=== PATIENT | male | born 1950 | race Caucasian/White ===

== ENCOUNTER 2017-12-21 10:32 | Outpatient (CLI) | payer MEDICARE | END 2017-12-21 10:33 | disposition home or self-care (01) | LOC: BICCT 10:32 | PROVIDERS: ATTEND Internal Medicine Cardiovascular Disease | DX: I71.2 Thoracic aortic aneurysm, without rupture (principal); I35.1 Nonrheumatic aortic (valve) insufficiency | CPT/HCPCS: 71275 ==

== ENCOUNTER 2018-09-30 11:25 | Outpatient (CLI) | payer MEDICARE ==
--- NOTE | 2018-09-30 11:57 | RAD ---
CHEST 2 VIEWS: HISTORY: Nonrheumatic aortic valve insufficiency. Heart surgery on 06/06/2018 with concern for followup of hea ling of sternal bone. FINDINGS: Heart size is normal. Postop midline sternotomy and aortic valve replacement. No confluent pneumoni a, overt edema, or pleural effusion. IMPRESSION: 1. Status post midline sternotomy and aortic valve replacement. No significant acute intrathoracic disease. 2. Atherosclerosis of the aorta with ectasia. 3. If there is clinical concern for the sternum, particularly in regards to healing, a followup CT s can would probably be of more benefit in evaluating for that possibility. POS: [facility]
== END 2018-09-30 11:26 | disposition home or self-care (01) ==
LOC: BICRAD 11:25
PROVIDERS: ATTEND Internal Medicine Cardiovascular Disease
DX: I35.1 Nonrheumatic aortic (valve) insufficiency (principal); I70.0 Atherosclerosis of aorta; I77.810 Thoracic aortic ectasia; Z98.890 Other specified postprocedural states; Z95.2 Presence of prosthetic heart valve
CPT/HCPCS: 71046

== ENCOUNTER 2020-05-04 00:53 | Inpatient (IN) | payer MEDICARE ==
[2020-05-04 01:48] LABS: Hemoglobin 7.6 g/dL (14.0-18.0); Mean Corpuscular Hemoglobin 29.4 pg (27.0-31.0); Mean Platelet Volume 9.5 fL (7.4-10.4); Platelet Count 115 thou/uL (130-400); RBC Distribution Width 14.2 % (11.5-14.5); Red Blood Cell (RBC) Count 2.59 mill/uL (4.70-6.10)
[2020-05-04 01:54] LABS: INR-International Normal Ratio 1.4; Prothrombin Time 17.6 sec (12.0-14.7)
[2020-05-04 01:55] LABS: PTT 42.5 sec (22.9-36.1)
[2020-05-04 02:26] LABS: CKMB 6.5 ng/mL (0-6.6)
--- NOTE | 2020-05-04 03:14 | PDOC.HHP ---
Hospitalist HPI - History of Present Illness general weakness History of Present Illness: This is a 69-year-old male patient with a history of atrial fibrillation, valvulopathy and aortic valve valve repair, repair of aortic dissection, nephrolithiasis, CAD status post CABG, who presents with general weakness for the past couple of months. He was transferred from [facility]. Patient states that about a month to a month and a half ago he had some goat weed growing in his backyard which she cut down after which he felt unwell and has been progressively worsening. He has had intermittent fevers, cough and severely decreased appetite. He is also has difficulty walking and intermittent confusion. He has chronic low back pain which he notes has become significantly worse. His prompted him to go to see the doctor. He presents to the ED at [facility] today for further evaluation. Patient was very hard of hearingwas difficulty elicited all questions. At presentation at [facility], his blood pressure was 78/52, pulse 130, respiratory rate 24, oxygen 99% on room air. Temperature of 97.9. His labs showed a leukocytosis of 25, hemoglobin 9.1, bands 1, platelets 108 sodium 131 4.39 from a baseline of 0.922 months ago. Lactate was 3.1 with improvement to 1.6 after hydration BNP was 442.5, troponin was 0.744. Urinalysis showed greater than 50 RBCs, 2+ bacteria 4-6 WBCs generally not indicative of a urinary tract infection. Also squamous epithelial cells was 7- 10. Chest x-ray showed linear atelectasis versus scarring in the left lung base however no clear indication of acute event. 3 L normal saline with no improvement in his blood pressure thus was given a central line and started on Levophed. Also started on azithromycin and ceftriaxone for antibiotic coverage. He was transferred here for higher level care. On arrival here his BP was 105/68, pulse 92, respiratory rate 20 and saturating 99 on room air. Given history of altered mentation a CT scan of his head was done which showed subacute infarct in the right cerebral hemisphere. Levophed was continued and IV fluid therapy continued on 130 mils per hour. Hospitalist team was consulted for admission Hospitalist ROS - Review of Systems Constitutional: reports: fever, weakness, malaise. denies: chills, sweats Respiratory: reports: cough. denies: shortness of breath, hemoptysis, SOB with excertion Cardiovascular: denies: chest pain, palpitations, orthopnea Gastrointestinal: denies: nausea, vomiting, abdominal pain Musculoskeletal: reports: back pain. denies: neck pain, shoulder pain, arm pain Neurological: reports: confusion. denies: weakness, numbness, incoordination, seizures Hospitalist History - Past Medical History Other Medical History: Atrial fibrillation, nephrolithiasis, valvulopathy, aortic dissection, CAD status post CABG - Past Surgical History Other Surgical History: CABG, kidney stone removal, valve replacement, - Family History Family History: reports: no pertinent history - Social History Smoking Status: Former smoker Alcohol: reports: None Living Situation: With Family - Exam General Appearance: awake alert, ill appearing Eye: PERRL, anicteric sclera ENT: normocephalic atraumatic Heart: RRR, no gallops, murmur present (Ejection systolic) Respiratory: CTAB, no wheezes, no rales, no ronchi Gastrointestinal: soft, non-tender, non-distended, normal bowel sounds Neurological: cranial nerve grossly intact (Patient however hard of hearing), no focal deficits Musculoskeletal: normal tone Psychiatric: A&O x 3, flat affect Hospitalist Results - Labs Result Diagrams: 05/05/20 04:17 05/05/20 04:17 Lab results: WBC 25.0 thou/uL (4.8-10.8) H 05/04/20 01:23 Hgb 7.6 g/dL (14.0-18.0) L 05/04/20 01:23 Hct 23.1 % (42.0-52.0) L 05/04/20 01:23 MCV 89.0 fL (78.0-98.0) 05/04/20 01:23 Plt Count 115 thou/uL (130-400) L 05/04/20 01:23 CK-MB (CK-2) 6.5 ng/mL (0-6.6) 05/04/20 01:23 Troponin I 1.178 ng/mL (< 0.028) H* 05/04/20 01:23 Hospitalist H&P A/P - Plan Plan: This is a 69-year-old male patient with a complicated past medical history including coronary artery disease status post CABG, aortic valve replacement, atrial fibrillation and chronic back pain who presents with septic shock of unclear source. Septic shock Source unknown. Patient hypotensive refractory to fluids, leukocytosis and tachypnea and fever. Last received 30 mils per KG IV fluids now on Levophed Received azithromycin and ceftriaxone I will give daptomycin for MRSA coverage given her renal functionotherwise would have given vancomycin Also start Zosyn Follow-up cultures Echo in a.m. to rule out vegetations on valves May have to consider spinal CT if no source of found Lactate was within normal range. Consider ID consult for review of antibiotic NSTEMI Troponin significantly elevated and rising Could be due to demand however Has history of coronary disease status post CABG Given cardiac history we will start on Lovenox Cardiac consult a.m. for review JODY Creatinine 4.39 from a baseline of 0.92 Received fluids and currently on pressors This is likely prerenal Repeat BMP in the morning Renal consult if no improvement. Anemia Hemoglobin is from 9.2 to 7.6. This may be dilutionalreceived about 3 L We will hold blood transfusion for now Hemoccult was negative Monitor H&H Transfuse hemoglobin less than 7 Follow-up a.m. CBC Consider GI consult if necessary Subacute stroke Patient has A. fib-not on anticoagulation Aspirin given at outside hospital Echocardiogram ordered Consider starting anticoagulation long-term PT evaluation Neuro consult in a.m. Valvular heart disease Ongoing edema Echo to rule out vegetation Consider cardiology consult. Paroxysmal atrial fibrillation Not on anticoagulation Consider statin in a.m. Consider cardiology input. Chronic back pain Pain relief as needed.
[2020-05-04] MEDS ORDERED: Norepinephrine 8 MG in Dextrose 5% in Water 242 ML IVPB PRN (03:45)
[2020-05-04] MEDS ORDERED: Ondansetron PF 4 MG/2 ML Vial IVP PRN (03:45)
[2020-05-04] MEDS ORDERED: Acetaminophen 325 MG TAB PO PRN (03:45)
[2020-05-04] MEDS ORDERED: Sodium Chloride 0.9% 1,000 ML IV SCH (03:45)
[2020-05-04] MEDS ORDERED: Ondansetron ODT 4 MG TAB SL PRN (03:45)
[2020-05-04] MEDS ORDERED: DAPTOmycin 500 MG in Sodium Chloride 0.9% 100 ML IVPB SCH ×2 (04:30→17:00)
[2020-05-04] MEDS ORDERED: Acetaminophen 650 MG Suppository PR PRN (04:38)
[2020-05-04] MEDS ORDERED: Enoxaparin Sodium 100 MG/ML SYRINGE SC SCH (05:00)
[2020-05-04] MEDS: Morphine 2 MG/ML VIAL SLOW IVP PRN ×2 (05:27→20:49)
[2020-05-04] MEDS: Piperacillin/Tazobactam 2.25 GM in Sodium Chloride 0.9% 100 ML IVPB SCH ×3 (05:29→22:23)
[2020-05-04] MEDS ORDERED: Piperacillin/Tazobactam 4.5 GM in Sodium Chloride 0.9% 100 ML IVPB SCH (06:00)
--- NOTE | 2020-05-04 08:24 | CT ---
PRELIMINARY REPORT/[facility]/EMERGENCY AFTER HOURS PROCEDURE EXAM: CT Head Without Intravenous Contrast. CLINICAL HISTORY: Increased weakness for the past couple weeks, AMS today. TECHNIQUE: Axial computed tomography images of the head/brain without intravenous contrast. COMPARISON: None provided. FINDINGS: BRAIN: No acute intraparenchymal hemorrhage. No mass lesion. There are foci of hypoattenuation identified i n the right posterior temporal, parietal and medial occipital lobes, subacute infarction is suspected. There is a small area of hypoattenuation in the medial right cerebellar hemisphere, infar ction in this region is suspected.. VENTRICLES: No hydrocephalus. ORBITS: The orbits are unremarkable. SINUSES AND MASTOIDS: The paranasal sinuses and mastoid air cells are clear. SOFT TISSUES: No significant facial or scalp soft tissue swelling evident. No radiopaque foreign body is seen. BONES: No acute skull fracture. IMPRESSION: Subacute infarctions are suspected in the right cerebral hemisphere. There is also an area of hypoat tenuation consistent with subacute infarction in the medial right cerebellum. There is no evidence of an acute intracranial hemorrhage or hematoma.. ELECTRONICALLY SIGNED BY: Dunia Lu DO May 04, 2020 3:20:08 AM [employer] This report is intended for review by the ordering physician only, in accordance of law. If you recei ve this report in error, please call [facility] at [phone]. FINAL REPORT Exam: Head CT without contrast HISTORY: Altered mental status. Increased weakness, for the past couple weeks. COMPARISON: 09/20/2014 FINDINGS: Hemorrhage: No intraparenchymal hemorrhage or extra-axial hematoma. Brain parenchyma: Cortical garrison-white matter differentiation is preserved. No mass effect or midline shift. Basilar cisterns are patent.Encephalomalacia and gliosis involving the right temporal lobe and medial left occipital lobe. Remainder of the cerebrum demonstrates preservation of cortical garrison- white matter differentiation. Ventricular system: Ventricles and sulci are patent and symmetric. Calvarium: Intact. Sinuses and mastoid air cells: Left maxillary sinus disease. IMPRESSION: 1. This report is in agreement with initial report by [facility]. 2. Remote insult involving the right cerebrum at the level of the temporal lobe and medial left occip ital lobe. Transcribed Date/Time: 05/04/2020 10:51 AM
[2020-05-04] MEDS ORDERED: Doxycycline 100 MG in Syringe 0 ML IVPB SCH (09:00)
--- NOTE | 2020-05-04 09:14 | CON ---
DATE OF CONSULTATION: 05/04/2020 CONSULTING PHYSICIAN: Hospitalist Service. IMPRESSION: 1. 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 2. History of atrial fibrillation. 3. Ongoing numerous medical problems. PLAN: Continue aspirin for now and consider long-term anticoagulation once things have stabilized. HISTORY OF PRESENT ILLNESS: Mr. Trujillo is an elderly gentleman, who has a past history of stroke. He reports that it happened several years ago, but could not give me specifics. He has had a history of atrial fibrillation with valvuloplasty. He also has a history of coronary artery disease. He presented to [facility] with complaints of weakness. He was noted to be hypotensive with an elevated white count and anemia. He was in renal failure. He was transferred here for care. He was given fluids and pressors. He is doing somewhat better. 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 He has been started on aspirin. PAST MEDICAL HISTORY: As listed above. ALLERGIES: NONE. SOCIAL HISTORY: No tobacco or alcohol use currently. FAMILY HISTORY: Noncontributory. MEDICATIONS: List was reviewed. REVIEW OF SYSTEMS: Ten-system review of systems is otherwise negative. PHYSICAL EXAMINATION: VITAL SIGNS: Blood pressure 90/68, pulse 85 and is in sinus rhythm, saturations 100%, and respirations 12. HEENT: Pupils equal and reactive. Conjunctivae clear. Oropharynx clear. Cranium, normocephalic and atraumatic. NECK: Supple. No lymphadenopathy. ABDOMEN: Soft and nontender. SKIN: Clear. EXTREMITIES: No cyanosis or edema. NEUROLOGIC: He was alert and cooperative. His speech was fluent and clear. I could not elicit a visual field deficit. He had no focal weakness or dysmetria. Sensation was intact. Plantar responses were upgoing on the left and down on the right. Gait was not tested. DIAGNOSTIC STUDIES: The findings on CT are chronic. Given his risk factors, I agree with the aspirin for now and anticoagulation in his future. Job ID: [id number]
[2020-05-04] MEDS ORDERED: Aspirin 81 mg Enteric Coated Tablet PO SCH (09:30)
[2020-05-04 10:02] LABS: Hemoglobin A1c 5.7 % (4.0-6.0)
[2020-05-04 10:25] LABS: Cholesterol 55 mg/dl (< 200 Desired); HDL Cholesterol Less than 8 mg/dL (>60 Neg Risk); Triglycerides 99 mg/dL (Less than 150)
--- NOTE | 2020-05-04 11:39 | PDOC.HOSPP ---
- Subjective Encounter Date: 05/04/20 Encounter Time: 09:45 Subjective: Patient is alert oriented x3 at bedside. He he is on Levophed and also IV fluids running NS at 150 mL an hour. Patient is alert oriented. Not oriented to the time. However no focal neurological deficits. Discussed with the patient and and with RN. Placed cardiology consult will get the serial troponin. Patient denies any chest pain. His systolic blood pressure in the 90s range. - Objective Vital Signs & Weight: Vital Signs (12 hours) Temp Pulse Ox 05/04/20 07:00 97.7 F 05/04/20 04:01 97.6 F 05/04/20 04:00 98.1 F 05/04/20 03:45 100 Weight Weight 226 lb Most Recent Monitor Data Heart Rate from ECG 85 NIBP 98/61 NIBP BP-Mean 73 Respiration from ECG 20 SpO2 99 I&O: 05/03/20 05/04/20 05/05/20 06:59 06:59 06:59 Intake Total 500 Output Total 170 300 Balance -170 200 Result Diagrams: 05/04/20 01:23 Hospitalist ROS - Medication Medications: Active Medications Generic Name Dose Route Start Last Admin Trade Name Freq PRN Reason Stop Dose Admin Enoxaparin Sodium 100 mg 05/04/20 05:00 05/04/20 05:28 Enoxaparin Sodium 100 Mg/Ml Syringe SC 100 mg 0500 JAIME Administration Norepinephrine Bitartrate 8 mg 250 mls @ 0 mls/hr 05/04/20 03:45 05/04/20 03:59 / Dextrose/Water IVPB 250 mls INF PRN Administration TO MAINTAIN MAP > 65 Protocol As Directed Piperacillin Sod/Tazobactam 100 mls @ 200 mls/hr 05/04/20 06:00 05/04/20 05:29 Sod 2.25 gm/ Sodium Chloride IVPB 100 mls Q8HR JAIME Administration Morphine Sulfate 2 mg 05/04/20 05:11 05/04/20 05:27 Morphine 2 Mg/Ml Vial SLOW IVP 2 mg Q2H PRN Administration Pain - Exam General Appearance: NAD, awake alert Eye: PERRL ENT: normocephalic atraumatic Neck: supple Heart: RRR, normal peripheral pulses Respiratory: CTAB, normal chest expansion Gastrointestinal: soft, normal bowel sounds Neurological: cranial nerve grossly intact, no focal deficits Psychiatric: normal affect, normal behavior, A&O x 3 Hosp A/P - Plan 69-year-old male patient with a complicated past medical history including coronary artery disease status post CABG, aortic valve replacement, atrial fibrillation and chronic back pain who presents with septic shock of unclear source. Septic shock present on admission Source unknown. Patient hypotensive refractory to fluids, leukocytosis and tachypnea and fever present on admission. Echo in a.m. to rule out vegetations on valves -Continue with Levophed and fluid resuscitation Consider ID consult for review of antibiotic NSTEMI -Serial troponin -Started him on aspirin -Holding his home medications of Coreg and Lasix due to severe hypotension and on vasopressor currently Troponin significantly elevated and rising Has history of coronary disease status post CABG Given cardiac history we will start on Lovenox Cardiol.consutled JODY due to hypoperfusion Creatinine 4.39 from a baseline of 0.92 Received fluids and currently on pressors Anemia Hemoglobin is from 9.2 to 7.6. 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 fib-not on anticoagulation Aspirin given at outside hospital Echocardiogram ordered - Paroxysmal atrial fibrillation Not on anticoagulation Consider statin in a.m. Consider cardiology input. Chronic back pain Pain relief as needed. Hold physical therapy evaluation and treatment as patient is on Levophed currently. Full code
[2020-05-04 13:27] LABS: Anion Gap 13 mmol/L (10-20); BUN (Urea Nitrogen) 55 mg/dL (8.4-25.7); Calc. Creatinine Clearance 27 mL/min (70-130); Calcium 6.6 mg/dL (7.8-10.44); Carbon Dioxide 17 mmol/L (23-31); Chloride 105 mmol/L (98-107); Glucose 114 mg/dL (80-115); Magnesium 1.4 mg/dL (1.6-2.6); Potassium 3.8 mmol/L (3.5-5.1); Sodium 131 mmol/L (136-145)
[2020-05-04] MEDS ORDERED: Albumin 25% 25 GM/100 ML BOT IVPB SCH ×2 (13:36→16:30)
[2020-05-04 13:43] LABS: CKMB 8.3 ng/mL (0-6.6)
[2020-05-04] MEDS ORDERED: Cosyntropin 250 MCG VIAL SLOW IVP SCH (13:45)
--- NOTE | 2020-05-04 15:51 | CON ---
DATE OF CONSULTATION: HISTORY OF PRESENT ILLNESS: The patient is an unfortunate 69-year-old gentleman with a history of aortic valve replacement and aortic repair, who presented with weakness and fever. The patient states a few years ago, he underwent an emergent surgery for an aortic dissection and had placement of aortic valve. The patient also had a coronary bypass graft surgery x1. The patient states he has been feeling weak for the past few months. He was noted for the past few days having very high fever. He became confused. He presented to the emergency room for further evaluation. The patient denied having any chest discomfort. PAST MEDICAL HISTORY: 1. Aortic valve replacement. 2. Aortic aneurysm repair. 3. Hypertension. 4. Atrial fibrillation. PAST SURGICAL HISTORY: Kidney stone surgery, coronary artery bypass graft surgery. SOCIAL HISTORY: He is a nonsmoker. ALLERGIES: KNOWN DRUG ALLERGIES. MEDICATIONS: He takes: 1. Coreg 6.25 b.i.d. 2. Lasix 20 daily. 3. Flomax 0.4 daily. 4. Potassium 20 daily. PHYSICAL EXAMINATION: GENERAL AND VITAL SIGNS: Ill-appearing gentleman with a blood pressure 108/67 on Levophed. NECK: No jugular venous distention. LUNGS: Clear to auscultation. HEART: Regular rate and rhythm. Normal S1, S2 with a 3/6 systolic murmur. ABDOMEN: Distended. EXTREMITIES: Showed mild edema. VASCULAR: Radial pulses are 2+. LABORATORY DATA: Sodium 131, potassium 3.8, chloride 105, bicarbonate 17, BUN 55, creatinine 3.77. White blood cell count is 25, hemoglobin 7.6, hematocrit 23.1, and platelets 115. INR was 1.4. Emergent echocardiogram revealed normal left ventricular ejection fraction of 50% to 55%. There was a mass attached to the prosthetic aortic valve, very suggestive of vegetation. IMPRESSION: 1. Probable endocarditis. 2. History of aortic valve replacement. 3. History aortic aneurysm repair. 4. History of coronary artery bypass surgery. 5. Acute septic shock. 6. History of transient ischemic attack. 7. History of atrial fibrillation. This gentleman presents with septic shock. There is a mass attached to the prosthetic valve, very suggestive of a vegetation. From a Cardiac standpoint, he is on an appropriate medications, this does not appear to be acute coronary syndrome. We will follow this patient with you through his hospitalization. Critical care time is 40 minutes. Job ID: [id number] [facility]
--- NOTE | 2020-05-04 15:53 | PDOC.BPN ---
- Brief Progress Note jody - cannot put him on vancomycin though pharm states that they adjust renally PREFER DAPTOMYCIN FOR NOW, UNTIL ID ON BOARD, GIVEN THE JODY
[2020-05-04 18:13] LABS: Critical Call Chem Troponin I RESULT DECREASING
[2020-05-04 18:31] LABS: CKMB 4.6 ng/mL (0-6.6)
[2020-05-04] MEDS ORDERED: FLU VACC QS2020-21(65YR UP)/PF 240 MCG/0.7 ML SYRINGE IM ONE (21:00)
[2020-05-05 04:53] LABS: #Eosinphils 0.1 thou/uL (0.0-0.7); #Lymphocytes 0.9 thou/uL (1.20-3.40); #Monocytes 0.3 thou/uL (0.11-0.59); #Neutrophils 7.5 thou/uL (1.40-6.50); %Basophils 0.1 % (0.0-1.0); %Eosinophils 0.6 % (0.0-10.0); %Lymphocytes 10.1 % (21.0-51.0); %Monocytes 3.2 % (0.0-10.0); Hemoglobin 7.9 g/dL (14.0-18.0); Mean Corpuscular HGB CONC 32.9 g/dL (32.0-36.0); Mean Corpuscular Hemoglobin 28.3 pg (27.0-31.0); Mean Platelet Volume 8.9 fL (7.4-10.4); Platelet Count 107 thou/uL (130-400); RBC Distribution Width 16.7 % (11.5-14.5); Red Blood Cell (RBC) Count 2.78 mill/uL (4.70-6.10); White Blood Cell (WBC) Count 8.7 thou/uL (4.8-10.8)
[2020-05-05 04:54] LABS: Band 1 % (5-11); Hemoglobin 7.8 g/dL (14.0-18.0); Lymphocytes 5 % (21-51); MDiff Complete? YES; Mean Corpuscular HGB CONC 32.9 g/dL (32.0-36.0); Mean Corpuscular Hemoglobin 28.1 pg (27.0-31.0); Mean Corpuscular Volume 85.6 fL (78.0-98.0); Mean Platelet Volume 8.6 fL (7.4-10.4); Monocytes 1 % (0-10); Neutrophil 93 % (42-75); Platelet Count 107 thou/uL (130-400); Platelet Morphology Comment Appears Decreased; RBC Distribution Width 16.7 % (11.5-14.5); RBC Morphology Normal; Red Blood Cell (RBC) Count 2.76 mill/uL (4.70-6.10); White Blood Cell (WBC) Count 8.7 thou/uL (4.8-10.8)
[2020-05-05] MEDS ORDERED: Vancomycin 1 GM in Premix Bag 1 BAG IVPB SCH ×2 (05:00→05:30)
[2020-05-05 05:04] LABS: Vancomycin, Random 13.8 ug/mL (See Comment)
[2020-05-05] MEDS: Piperacillin/Tazobactam 2.25 GM in Sodium Chloride 0.9% 100 ML IVPB SCH ×2 (05:05→14:14)
[2020-05-05 05:06] LABS: Anion Gap 12 mmol/L (10-20); BUN (Urea Nitrogen) 53 mg/dL (8.4-25.7); Calc. Creatinine Clearance 27 mL/min (70-130); Calcium 6.9 mg/dL (7.8-10.44); Carbon Dioxide 19 mmol/L (23-31); Cardiac Risk 7.5 (Less than 4.5); Chloride 106 mmol/L (98-107); Cholesterol 60 mg/dl (< 200 Desired); Glucose 120 mg/dL (80-115); HDL Cholesterol 8 mg/dL (>60 Neg Risk); LDL Cholesterol, Calculated 31 mg/dL; Potassium 3.9 mmol/L (3.5-5.1); Sodium 133 mmol/L (136-145); Triglycerides 106 mg/dL (Less than 150)
[2020-05-05] MEDS: Vancomycin 1 GM in Premix Bag 1 BAG IVPB SCH (05:59)
[2020-05-05] MEDS: Aspirin 81 mg Enteric Coated Tablet PO SCH (09:02)
--- NOTE | 2020-05-05 12:14 | PDOC.HOSPP ---
- Subjective Encounter Date: 05/05/20 Encounter Time: 10:10 Subjective: Patient feels slightly better than yesterday. He has a central line on the right chest. I talked to the pharmacy they want to wait until Dr. Hauser on board to consider for daptomycin. The vancomycin trough is being monitored by the pharmacy. His creatinine is still on the high end. Dr. Mcgrath on board - Objective Vital Signs & Weight: Vital Signs (12 hours) Temp Pulse Resp BP Pulse Ox 05/05/20 11:47 97.8 F 84 16 96/58 L 17 L 05/05/20 09:00 98.8 F 79 17 92/57 L 97 05/05/20 08:00 94 L 05/05/20 03:00 98.3 F 71 20 99/62 97 Weight Admit Weight 226 lb Weight 232 lb 6.4 oz Most Recent Monitor Data Heart Rate from ECG 85 NIBP 108/66 NIBP BP-Mean 83 Respiration from ECG 10 SpO2 100 I&O: 05/04/20 05/05/20 05/06/20 06:59 06:59 06:59 Intake Total 4268.4 Output Total 170 2360 Balance -170 1908.4 Result Diagrams: 05/05/20 04:17 05/05/20 04:17 Hospitalist ROS - Medication Medications: Active Medications Generic Name Dose Route Start Last Admin Trade Name Freq PRN Reason Stop Dose Admin Aspirin 81 mg 05/05/20 09:00 05/05/20 09:02 Aspirin 81 Mg Enteric Coated Tablet PO 81 mg DAILY JAIME Administration Cosyntropin 250 mcg 05/04/20 13:45 05/04/20 18:35 Cosyntropin 250 Mcg Vial SLOW IVP 250 mcg WILLCALL JAIME Administration Norepinephrine Bitartrate 8 mg 250 mls @ 0 mls/hr 05/04/20 03:45 05/04/20 03:59 / Dextrose/Water IVPB 250 mls INF PRN Administration TO MAINTAIN MAP > 65 Protocol As Directed Piperacillin Sod/Tazobactam 100 mls @ 200 mls/hr 05/04/20 06:00 05/05/20 05:05 Sod 2.25 gm/ Sodium Chloride IVPB 100 mls Q8HR JAIME Administration Morphine Sulfate 2 mg 05/04/20 05:11 05/04/20 20:49 Morphine 2 Mg/Ml Vial SLOW IVP 2 mg Q2H PRN Administration Pain - Exam General Appearance: NAD, awake alert Eye: PERRL ENT: normocephalic atraumatic Neck: supple Heart: RRR Respiratory: CTAB, normal chest expansion Gastrointestinal: soft, normal bowel sounds Neurological: cranial nerve grossly intact, no focal deficits Psychiatric: normal affect, normal behavior, A&O x 3 Hosp A/P - Plan 69-year-old male patient with a complicated past medical history including coronary artery disease status post CABG, aortic valve replacement, atrial fibrillation and chronic back pain who presents with septic shock of unclear source. Septic shock present on admission Source unknown. Patient hypotensive refractory to fluids, leukocytosis and tachypnea and fever present on admission. Echo in a.m. to rule out vegetations on valves -Continue with Levophed and fluid resuscitation Consider ID consult for review of antibiotic NSTEMI -Serial troponin -Started him on aspirin -Holding his home medications of Coreg and Lasix due to severe hypotension and on vasopressor currently Troponin significantly elevated and rising Has history of coronary disease status post CABG Given cardiac history we will start on Lovenox Cardiol.consutled JODY due to hypoperfusion Creatinine 4.39 from a baseline of 0.92 Received fluids and currently on pressors Anemia Hemoglobin is from 9.2 to 7.6. 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 fib-not on anticoagulation Aspirin given at outside hospital Echocardiogram ordered - Paroxysmal atrial fibrillation Not on anticoagulation Chronic back pain Pain relief as needed. Hold physical therapy evaluation and treatment as patient is on Levophed currently. Full code 10th Echo showed -Aortic valve vegetation Prosthetic aortic valve EF of 55% mildly dilated left atrium and moderate mitral regurgitation. Patient has a central line on the right upper chest. Infectious disease on board. I talked to pharmacy regarding vancomycin versus daptomycin given the renal dysfunction. -It appears that they will follow with the Dr. Hauser. -Blood and urine cultures so far no growth.
--- NOTE | 2020-05-05 12:16 | CON ---
DATE OF CONSULTATION: 05/04/2020 HISTORY OF PRESENT ILLNESS: Gerson Trujillo is a pleasant 69-year-old male. According to his , he has been declining for about 4 months. His appetite has gone away. In the last two months, his legs have been swelling. He developed a cough 4 months ago that started after he cut goat weed in one of the pastures. Because of his cough, his pharmacist recommended stopping the benazepril. Because of low blood pressure, they eventually cut him from 25 of Coreg to 3.25 of Coreg reportedly. He apparently got confused, which was aggravated by taking a pain medication. He subsequently presented hypotensive and tachycardic to [facility] and was transferred here. He is on pressors. He says he feels better and his says he looks better. PAST MEDICAL HISTORY: 1. Remarkable for atrial fibrillation, history of kidney stones. 2. History of coronary artery bypass grafting. 3. History of an aortic dissection in the past. 4. History of valvuloplasty. SOCIAL HISTORY: He is a nonsmoker and nondrinker. REVIEW OF SYSTEMS: Otherwise negative. He denies having cough now. He denies having chest pain, purulent sputum, bright red blood per rectum, or melena. He has had no nausea, vomiting, or abdominal pain. PHYSICAL EXAMINATION: GENERAL: He is very pleasant and quite cooperative. VITAL SIGNS: He is not hypoxic. His blood pressure is in the high 90s. Heart rate is in 70s, respiratory rates in the 20s to high teens. HEAD AND NECK: Unremarkable. LUNGS: Clear. HEART: Regular rhythm. ABDOMEN: Soft and nontender. EXTREMITIES: Without clubbing, cyanosis, or edema. LABORATORY DATA: White count is 25, hemoglobin is 7.6, platelets 115. Sodium 131, potassium 3.8, chloride 105, bicarb 17, BUN 55, creatinine 3.77 down from 4.39 yesterday. Creatinine in February was 0.9. This is all acute. ACTH stimulation test was ordered today by me. IMPRESSION: Chronic dehydration, intravascular volume depletion, combined with weight loss. The etiology of which is unclear. I suspect with hydration, he will have improved hemodynamics. With a hemoglobin of 7.6 and hypotension, he needs to be transfused. An echocardiogram has been ordered. He has a normal ejection fraction. His prosthetic aortic valve was not visualized. The report suggests that there is a vegetation on the aortic valve. I am not sure that this was communicated to the team. I doubt he has had endocarditis for 4 months, but he certainly with a mechanical valve could have endocarditis. He is on vanc and Zosyn. It does not appear that cultures were drawn prior to the antibiotics. If he has endocarditis, he should still have persistent positive blood cultures, so I have ordered blood cultures. I will be happy to follow with the other physicians caring for him. Infectious Disease should probably be consulted. He probably would benefit from transesophageal echo to get a better visualization of his aortic valve if possible. This is a 70 min consult with greater than 50% of the time spent on the unit with coordination of care. Job ID: [id number] [facility]
[2020-05-05] MEDS: Lactated Ringer's 1,000 ML IV SCH (14:15)
--- NOTE | 2020-05-05 14:27 | CON ---
DATE OF CONSULTATION: 05/05/2020 SUBJECTIVE: Mr. Trujillo is a 69-year-old white male with known multiple medical problems, initially admitted for generalized malaise and weakness. He was first evaluated in [place] [facility], where he was noted to be volume depleted. He has been transferred to [facility] for further management. We are now being consulted for his acute kidney injury. Please note, he has some slight improvement with the renal function. He has received empiric volume repletion as well as albumin infusion. REVIEW OF SYSTEMS: Positive for decreased energy level. No syncopal episode. No productive cough. No fever or chills. No shortness of breath. No chest pain, chronic low back pain. No nausea. No vomiting. No gross hematuria. No dysuria. No urinary frequency. MEDICATIONS: Currently on status post albumin infusion. 1. Aspirin 81 mg daily. 2. Morphine 2 mg IV q.4 as needed. 3. Zosyn 2.25 g IV q.8. 4. Start vancomycin. PAST MEDICAL HISTORY: 1. Status post CVA, atrial fibrillation, coronary artery disease, status post nephrolithiasis, DJD, hypertension, BPH. 2. Status post aortic dissection, coronary artery disease, valvular heart disease. 3. History of decreased hearing. PAST SURGICAL HISTORY: Status post cardiac cath, status post CABG, status post kidney stone removal, status post aortic aneurysm repair, status post aortic valve replacement. SOCIAL HISTORY: The patient is , lives in [place], three children. Retired [employer] employee. Education, high school. Currently, no smoking. No alcohol. No IV drug abuse. FAMILY HISTORY: No family history of ESRD. ALLERGIES: NO KNOWN DRUG ALLERGIES. TRAUMA: None. IMMUNIZATION: Up-to-date. HOSPITALIZATIONS: Please see past medical history. PHYSICAL EXAMINATION: VITAL SIGNS: Blood pressure is 96/58, heart rate 84, respiratory rate 16, temperature 97.8, O2 saturation is 97% room air. GENERAL: The patient is awake, supine, comfortable, not in overt distress. SKIN: Adequate turgor. HEENT: He has a slightly pale conjunctivae. Anicteric sclerae. NECK: No neck mass. No carotid bruits. No JVD. CHEST: No deformities. LUNGS: Clear breath sounds. No wheezing. No crackles. HEART: Normal sinus rhythm. Grade 2/6 systolic murmur. No gallops. No rubs. ABDOMEN: Globular, soft, nontender. No masses. EXTREMITIES: No edema. No deformities. NEUROLOGIC: Awake and oriented to 3 spheres. Decreased hearing. Moving all extremities. No tremors. No asterixis. LABORATORY DATA: Laboratories of May 05, 2020; sodium 133, potassium BUN 53, creatinine 3.92, glucose 120, calcium 6.9. CK-MB is 4.6, troponin I 1.419. Magnesium is 1.4. On May 04, 2020; BUN 35, creatinine 3.77. On May 03, 2020; creatinine 4.39. On March 22, 2020, creatinine 0.92. Urinalysis of May 03, 2020; specific gravity 1.010, no pigmented granular cast. Previous urinalysis on May 03, 2020; specific gravity was 1.020, urine protein 100, wbc 4 to 6, rbc greater than 50. White count 8.7, hemoglobin 7.8. April 2020, chest x-ray, no overt CHF. Cardiac echo of May 04, 2020, ejection fraction is 50% to 55%. There is a suggestion of a mass attached to aortic leaflet suggestive of a vegetation. ASSESSMENT AND PLAN: 1. Infective endocarditis-patient is on empiric IV antibiotics. ID consult has been done. 2. Acute kidney injury, consider hemodynamically-mediated renal dysfunction. Repeat urine sediment is relatively benign. Please note, he has had a history of decreased p.o. intake. Agree with empiric volume repletion-patient received albumin infusion. I will restart him at lactated Ringer's at 100 mL/hour. I do not find any indication for any dialytic intervention with this patient. 3. Hypotension secondary to volume depletion. Restart lactated Ringer solution with this patient. 4. Borderline anemia-p.r.n. blood transfusion for hemoglobin less than 7. 5. Recheck CBC and basic met in a.m. Job ID: [id number]
--- NOTE | 2020-05-05 15:49 | PRG ---
DATE OF SERVICE: 05/05/2020 OBJECTIVE: VITAL SIGNS: Stable. He is afebrile, heart rate is 84, respiratory rate is 16, oximetry is 97% on room air, blood pressure is 111/59. He is off pressors. LABORATORY DATA: His ACTH stimulation test did not show any evidence of adrenal insufficiency. Hgb is still low in spite of a transfusion PLAN: I recommend continue with the workup of his renal dysfunction, weight loss, and anorexia.,and anemia. We will sign off. Job ID: [id number] [facility]
--- NOTE | 2020-05-05 16:24 | ULT ---
ULTRASOUND RETROPERITONEUM COMPLETE: (RENAL) DATE: 05/05/2020 HISTORY: 69-year-old male with renal failure FINDINGS: The right kidney measures 11 x 6.5 x 6.5 cm.. The left kidney measures 12 x 8 x 5.5 cm.. There is no hydronephrosis. No moderate sized or large renal cystic or solid renal lesion is identified. There is a Lowe catheter in an empty urinary bladder. IMPRESSION: 1) no hydronephrosis. 2) Lowe catheter within empty urinary bladder.
[2020-05-05] MEDS: cefTRIAXone\\ROCEPHIN 2 GM in Sodium Chloride 0.9% 100 ML IVPB SCH (19:25)
[2020-05-06] MEDS: Lactated Ringer's 1,000 ML IV SCH ×3 (00:13→20:56)
--- NOTE | 2020-05-06 00:51 | CON ---
DATE OF CONSULTATION: 05/05/2020 REASON: Fever. HISTORY OF PRESENT ILLNESS: A 69-year-old with history of atrial fibrillation and aortic dissection with 2 valve replacements recently at [facility] in [place], who also had a history of nephrolithiasis and CVA with a 4-month history of recurrent episodes of chills with sweats. He never checked his temperature and eventually, he after refusing multiple times to come to be evaluated, he had progression of his worsening with change in mental state, so he was eventually admitted on May 04 after being transferred from [place] [facility]. His symptoms include intermittent confusion, chills, fevers, now documented anorexia, and he has had intermittent low back pain, which has been worse over the past few weeks. In [place], he was hypotensive with BP of 78/52; tachycardic and tachypneic with O2 saturations 99% on room air, temperature 97.9. Had a white cell count of 25,000, hemoglobin 9.1, platelets 108, and creatinine was 4.39. Lactate was 3.1. Urinalysis; greater than 50 rbc's, 2+ bacteria. He was given IV fluids and broad-spectrum antimicrobials started. Since admission, there has been normalization of his temperature and his blood pressure as well. His white cell count has reduced to 8.7, and he feels in general improved. Currently, he denies any headaches. No visual symptoms, sore throat, odynophagia, or dysphagia. No neck pain or thoracic spine pain. He still has some old lumbosacral spine pain. No abdominal tenderness. He required Lowe catheterization, which is still in place. He has a right subclavian central line. PAST MEDICAL HISTORY: Includes atrial fibrillation, nephrolithiasis, aortic dissection requiring repair and 2 valve replacements, coronary disease with bypass graft surgery as well. He has had kidney stone removal. FAMILY HISTORY: Noncontributory. SOCIAL HISTORY: Former smoker, lives with in [place]. Does not drink. CURRENT MEDICATIONS: 1. Aspirin. 2. Zosyn. 3. Vancomycin. PHYSICAL EXAMINATION: VITAL SIGNS: T-max 99.7 on the , he is now 98.0, BP 110/64, heart rate 84, respirations 16, O2 saturation 96. SKIN: Shows central line in right subclavian position. A Lowe catheter. HEENT: His ocular movements are conjugate. There was evidence of subconjunctival hemorrhage on the left side. Oral cavity still with few teeth in place, otherwise normal oral mucosa. NECK: Supple. No jugular vein distention. LUNGS: Symmetric, clear breath sounds. There is a harsh systolic murmur at the pulmonic area and the aortic area. No S3 or S4. Regular rate. ABDOMEN: Soft, not distended or tender. No ascites. No bladder distention. EXTREMITIES: No joint inflammatory activity. No edema. Pulses 1+ in dorsalis pedis. Moves extremities equally with good strength. NEUROLOGIC: He is awake, oriented. Other than hearing impairment, his cognition appears to be preserved. LABORATORY DATA: White cell count 8.7, hemoglobin 7.8, MCV 85, platelets 107, 93% neutrophils. INR 1.4. Creatinine is markedly elevated, started at 3.77, now is 3.9, and vancomycin 13.8. We have had 4 sets of blood cultures negative thus far. This is the second incubation date. Chest x-ray without infiltrates. Echocardiogram, this is transthoracic, with EF 50 to 55. There is a mass attached to the aortic leaflet suggestive of vegetation. ASSESSMENT: Multiple cardiac surgeries including 2 valve replacements, abnormal heart exam, sepsis, chronic fever, leukocytosis, and an abnormal echocardiogram with a mass attached to the aortic valve. There is also subconjunctival hemorrhage and evidence of glomerulonephritis. DISCUSSION: The most likely scenario is the aortic valve endocarditis, a nutritionally demanding bacteria such as one of the oral cavity bacteria or a nutritionally variant streptococci or bartonella are the main concerns. We will submit a Karius test to identify the organism and allow more targeted therapy. He will need a PICC line placement, but we will leave the central line for now in place and currently, we will switch him to Rocephin and continue vancomycin for now. Discontinue Zosyn. Job ID: [id number]
[2020-05-06] MEDS: Melatonin 3 MG TAB PO PRN (02:25)
[2020-05-06 04:56] LABS: Vancomycin, Random 18.2 ug/mL (See Comment)
[2020-05-06 04:59] LABS: Anion Gap 13 mmol/L (10-20); BUN (Urea Nitrogen) 55 mg/dL (8.4-25.7); Calc. Creatinine Clearance 27 mL/min (70-130); Calcium 7.2 mg/dL (7.8-10.44); Carbon Dioxide 18 mmol/L (23-31); Chloride 107 mmol/L (98-107); Glucose 104 mg/dL (80-115); Sodium 134 mmol/L (136-145)
[2020-05-06 05:01] LABS: Band 10 % (5-11); Eosinophils 2 % (0-10); Hemoglobin 8.4 g/dL (14.0-18.0); Hypochromia SLIGHT = 6-15 cells (100X) (0-5/hpf); Lymphocytes 2 % (21-51); MDiff Complete? YES; Mean Corpuscular HGB CONC 32.7 g/dL (32.0-36.0); Mean Corpuscular Hemoglobin 28.1 pg (27.0-31.0); Mean Corpuscular Volume 85.9 fL (78.0-98.0); Mean Platelet Volume 8.5 fL (7.4-10.4); Monocytes 3 % (0-10); Neutrophil 83 % (42-75); Platelet Count 121 thou/uL (130-400); Platelet Morphology Comment Appears Decreased; RBC Distribution Width 16.7 % (11.5-14.5); Red Blood Cell (RBC) Count 2.98 mill/uL (4.70-6.10); White Blood Cell (WBC) Count 9.1 thou/uL (4.8-10.8)
[2020-05-06] MEDS ORDERED: Vancomycin HCl 750 MG in Sodium Chloride 0.9% 250 ML 250 ML IVPB SCH (05:30)
[2020-05-06] MEDS: Aspirin 81 mg Enteric Coated Tablet PO SCH (08:38)
--- NOTE | 2020-05-06 10:52 | PDOC.HOSPP ---
- Subjective Encounter Date: 05/06/20 Encounter Time: 10:20 Subjective: had temp last night, this am he feels ok; little tachy, normotensive; talk to RN. pt has no heart murmur, that i can appreciate, no classic janeway lesions, sherman spots. GUILLAUME ordered. Blood culture of 9th - no growth Keep the meier on Renal US- no hydronephrosis Karias test to narrow down the microbe/s on vanc and CTX - Objective Vital Signs & Weight: Vital Signs (12 hours) Temp Pulse Resp BP Pulse Ox 05/06/20 08:38 98.9 F 97 17 114/65 95 05/06/20 03:43 99.0 F 93 18 113/66 93 L 05/05/20 23:25 99.0 F 93 16 128/71 97 Weight Admit Weight 226 lb Weight 232 lb 6.4 oz Most Recent Monitor Data Heart Rate from ECG 85 NIBP 108/66 NIBP BP-Mean 83 Respiration from ECG 10 SpO2 100 I&O: 05/05/20 05/06/20 05/07/20 06:59 06:59 06:59 Intake Total 4268.4 3070 Output Total 2360 2100 Balance 1908.4 970 Result Diagrams: 05/06/20 04:20 05/06/20 04:20 Hospitalist ROS - Medication Medications: Active Medications Generic Name Dose Route Start Last Admin Trade Name Freq PRN Reason Stop Dose Admin Aspirin 81 mg 05/05/20 09:00 05/06/20 08:38 Aspirin 81 Mg Enteric Coated Tablet PO 81 mg DAILY JAIME Administration Cosyntropin 250 mcg 05/04/20 13:45 05/04/20 18:35 Cosyntropin 250 Mcg Vial SLOW IVP 250 mcg WILLCALL JAIME Administration Norepinephrine Bitartrate 8 mg 250 mls @ 0 mls/hr 05/04/20 03:45 05/04/20 03:59 / Dextrose/Water IVPB 250 mls INF PRN Administration TO MAINTAIN MAP > 65 Protocol As Directed Lactated Ringer's 1,000 mls @ 100 mls/hr 05/05/20 13:30 05/06/20 00:13 Lactated Ringer's IV 1,000 mls .Q10H JAIME Administration Ceftriaxone Sodium 2 gm/ 100 mls @ 200 mls/hr 05/05/20 18:00 05/05/20 19:25 Sodium Chloride IVPB 100 mls Q24HR JAIME Administration Melatonin 3 mg 05/06/20 02:01 05/06/20 02:25 Melatonin 3 Mg Tab PO 3 mg HS PRN Administration Insomnia Morphine Sulfate 2 mg 05/04/20 05:11 05/04/20 20:49 Morphine 2 Mg/Ml Vial SLOW IVP 2 mg Q2H PRN Administration Pain - Exam General Appearance: NAD, awake alert Eye: PERRL ENT: normocephalic atraumatic Neck: supple Heart: RRR, no murmur, no gallops, no rubs Respiratory: CTAB, normal chest expansion Gastrointestinal: soft, normal bowel sounds Extremities: 1+ LE edema Neurological: cranial nerve grossly intact Psychiatric: normal affect, normal behavior, A&O x 3 Hosp A/P - Plan 69-year-old male patient with a complicated past medical history including coronary artery disease status post CABG, aortic valve replacement, atrial fibrillation and chronic back pain who presents with septic shock of unclear source. Septic shock present on admission Source unknown. Patient hypotensive refractory to fluids, leukocytosis and tachypnea and fever present on admission. Echo in a.m. to rule out vegetations on valves -Continue with Levophed and fluid resuscitation Consider ID consult for review of antibiotic NSTEMI -Serial troponin -Started him on aspirin -Holding his home medications of Coreg and Lasix due to severe hypotension and on vasopressor currently Troponin significantly elevated and rising Has history of coronary disease status post CABG Given cardiac history we will start on Lovenox Cardiol.consutled JODY due to hypoperfusion Creatinine 4.39 from a baseline of 0.92 Received fluids and currently on pressors Anemia Hemoglobin is from 9.2 to 7.6. 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 fib-not on anticoagulation Aspirin given at outside hospital Echocardiogram ordered - Paroxysmal atrial fibrillation Not on anticoagulation Chronic back pain Pain relief as needed. Hold physical therapy evaluation and treatment as patient is on Levophed currently. Full code 10th Echo showed -Aortic valve vegetation Prosthetic aortic valve EF of 55% mildly dilated left atrium and moderate mitral regurgitation. Patient has a central line on the right upper chest. Infectious disease on board. I talked to pharmacy regarding vancomycin versus daptomycin given the renal dysfunction. -It appears that they will follow with the Dr. Hauser. -Blood and urine cultures so far no growth. 11th Potential Aortic valve endocarditis pt has no heart murmur, that i can appreciate, no classic janeway lesions, sherman spots. GUILLAUME ordered. Blood culture of 9th - no growth Keep the meier on Renal US- no hydronephrosis Karias test to narrow down the microbe/s on vanc and CTX
--- NOTE | 2020-05-06 12:28 | PRG ---
DATE OF SERVICE: 05/06/2020 SERVICE: Renal Medicine. SUBJECTIVE: Mr. Trujillo is a 69-year-old white male who was seen for acute kidney injury. We felt that this was a hemodynamically-mediated dysfunction. He was started on LR IV fluid. He also has a recent diagnosis of infective endocarditis. Recommendations to change his Zosyn to Rocephin and continue vancomycin. He is feeling better this morning. He denies any chest pain or shortness of breath. OBJECTIVE: VITAL SIGNS: Blood pressure 114/65, heart rate 97, respiratory rate 17, temperature 98.9, and O2 sat is 95% on room air. GENERAL: The patient is awake, alert, supine, comfortable, not in distress. SKIN: Adequate turgor. HEENT: He has slightly pale conjunctivae. Anicteric sclerae. NECK: No neck mass. No carotid bruits. No JVD. CHEST: No deformities. LUNGS: Clear breath sounds. No wheezing. No crackles. HEART: Normal sinus rhythm. No murmur. No gallops. No rubs. ABDOMEN: Globular, soft, nontender. No masses. EXTREMITIES: No edema. No deformities. MEDICATIONS: Of May 06, 2020 reviewed. LABORATORY DATA: Laboratories on May 06, 2020, white count 9.1, hemoglobin 8.4, hematocrit 25.6. ASSESSMENT AND PLAN: 1. Acute kidney injury - considering hemodynamically-mediated dysfunction. There is some stabilization of his renal function. Creatinine today is 3.91. Yesterday this was 3.92. We will continue current IV fluid repletion. We are awaiting results of urinalysis and urine chemistries. We will also try to rule out any possible acute tubular necrosis with this patient. 2. Infective endocarditis, currently on Rocephin and vancomycin. 3. We will recheck CBC and basic metabolic profile in a.m. Job ID: [id number]
[2020-05-06 12:40] LABS: Bilirubin Negative (Negative); Blood, Urine 3+ (Negative); Clarity Turbid (Clear); Glucose, Urine (Dipstick) Normal (Negative); Ketone, Urine Negative (Negative); Leukocyte 25 Leu/uL (Negative); Nitrite Negative (Negative); Protein, Urine (Dipstick) 70 mg/dL (Neg-Trace); RBC/HPF Greater than 50 HPF (0-3); Squamous Epithelial None Seen HPF (0-3); Urobilinogen Normal mg/dL (Less than 2); pH, Urine 5.5 (5.0-9.0)
[2020-05-06 12:46] LABS: Bacteria/HPF 1+ HPF (None Seen)
--- NOTE | 2020-05-06 14:27 | PDOC.CPN ---
- Subjective Date: 05/06/20 Time: 14:18 Interval history: He is doing better. He had lunch so GUILLAUME could not be done. - Review of Systems General: denies: fever/chills, weight/appetite/sleep changes, night sweats, fatigue Respiratory: denies: cough, congestion, shortness of breath, exercise intolerance Cardiovascular: denies: chest pain, palpitation, edema, paroxysmal nocturnal dyspnea, orthopnea Gastrointestinal: denies: nausea, vomiting, diarrhea, constipation, abd pain, GI bleeding Musculoskeletal: denies: pain, tenderness, stiffness, swelling, art hritis/arthralgias Neurological: denies: numbness, syncope, seizure, weakness - Objective Allergies/Adverse Reactions: Allergies Allergy/AdvReac Type Severity Reaction Status Date / Time No Known Drug Allergies Allergy Verified 05/04/20 03:45 Visit Medications: Current Medications Acetaminophen (Acetaminophen 650 Mg Suppository) 650 mg NE Q4H PRN PRN Reason: Headache/Fever or Pain Acetaminophen (Acetaminophen 325 Mg Tab) 650 mg PO Q6H PRN PRN Reason: Fever/Mild Pain 1-3 Aspirin (Aspirin 81 Mg Enteric Coated Tablet) 81 mg PO DAILY [facility] Last Admin: 05/06/20 08:38 Dose: 81 mg Documented by: Cosyntropin (Cosyntropin 250 Mcg Vial) 250 mcg SLOW IVP WILLCALL [facility] Last Admin: 05/04/20 18:35 Dose: 250 mcg Documented by: Norepinephrine Bitartrate 8 mg (/ Dextrose/Water) 250 mls @ 0 mls/hr IVPB INF PRN; Protocol PRN Reason: TO MAINTAIN MAP > 65 Last Admin: 05/04/20 03:59 Dose: 250 mls Documented by: Vancomycin HCl 1 gm/ Device 200 mls @ 200 mls/hr IVPB .PENDING LEVELS [facility] Lactated Ringer's (Lactated Ringer's) 1,000 mls @ 100 mls/hr IV .Q10H [facility] Last Admin: 05/06/20 12:09 Dose: 1,000 mls Documented by: Ceftriaxone Sodium 2 gm/ (Sodium Chloride) 100 mls @ 200 mls/hr IVPB Q24HR [facility] Last Admin: 05/05/20 19:25 Dose: 100 mls Documented by: Melatonin (Melatonin 3 Mg Tab) 3 mg PO HS PRN PRN Reason: Insomnia Last Admin: 05/06/20 02:25 Dose: 3 mg Documented by: Miscellaneous Medication (Pharmacy To Dose Vancomycin) 1 each IVPB PRN PRN PRN Reason: Pharmacy to dose Morphine Sulfate (Morphine 2 Mg/Ml Vial) 2 mg SLOW IVP Q2H PRN PRN Reason: Pain Last Admin: 05/04/20 20:49 Dose: 2 mg Documented by: Sodium Chloride (Flush - Normal Saline 10 Ml Syringe) 10 ml IVF PRN PRN PRN Reason: Saline Flush Vital Signs & Weight: Vital Signs Temp Pulse Pulse Pulse Resp BP BP 05/06/20 12:13 108 H 17 05/06/20 11:33 119 H 114 H 115/73 116/72 05/06/20 08:38 98.9 F 97 17 05/06/20 08:00 05/06/20 03:43 99.0 F 93 18 BP Pulse Ox Pulse Ox Pulse Ox 05/06/20 12:13 117/76 94 L 05/06/20 11:33 95 96 05/06/20 08:38 114/65 95 05/06/20 08:00 94 L 05/06/20 03:43 113/66 93 L Admit Weight 226 lb Weight 232 lb 6.4 oz - Physical Exam General: alert & oriented x3 HEENT: mucus membranes moist Neck: supple neck Cardiac: regular rate and rhythm, systolic murmur Lungs: normal breath sounds Neuro: grossly intact Abdomen: active bowel sounds Extremities: no edema Skin: clear Musculoskeletal: no pain - Labs Result Diagrams: 05/06/20 04:20 05/06/20 04:20 Troponin/CKMB CK-MB (CK-2) 4.6 ng/mL (0-6.6) 05/04/20 17:12 Troponin I 1.419 ng/mL (< 0.028) H* 05/04/20 17:12 - Telemetry Sinus rhythms and dysrhythmias: sinus rhythm - Assessment/Plan Assessment/Plan: 1. Aortic valve endocarditis. 2. Hx of aortic valve replacement bioprosthetis. 3. Hx of ascending aortic aneurysm s/p repair. 4. Hx of CABG, RAGSDALE to LAD, SVG to RCA 5. Post op afib after his open heart. 6. PFP s/p repair at time of open heart surgery. PLAN: - Large flail mass on aortic valve consistent with aortic valve endocarditis. - Would benefit from GUILLAUME as he may have an abscess but he tells me he will not have any open surgery whatsoever. He wants abx only and if that does not work he is ready to go. - Would recommend repeat echo about 6-8 weeks from now, will arrange as outpatient. - No GUILLAUME planned for now as it wont change management consultant. - Will need PICC line - Will follow.
[2020-05-06] MEDS: cefTRIAXone\\ROCEPHIN 2 GM in Sodium Chloride 0.9% 100 ML IVPB SCH (17:03)
[2020-05-07 04:42] LABS: Band 5 % (5-11); Eosinophils 1 % (0-10); Hemoglobin 8.3 g/dL (14.0-18.0); Hypochromia SLIGHT = 6-15 cells (100X) (0-5/hpf); Lymphocytes 9 % (21-51); MDiff Complete? YES; Mean Corpuscular HGB CONC 32.8 g/dL (32.0-36.0); Mean Corpuscular Hemoglobin 28.2 pg (27.0-31.0); Mean Corpuscular Volume 85.8 fL (78.0-98.0); Mean Platelet Volume 8.3 fL (7.4-10.4); Monocytes 6 % (0-10); Neutrophil 79 % (42-75); Platelet Count 115 thou/uL (130-400); Platelet Morphology Comment Appears Decreased; RBC Distribution Width 16.5 % (11.5-14.5); Red Blood Cell (RBC) Count 2.94 mill/uL (4.70-6.10); White Blood Cell (WBC) Count 9.7 thou/uL (4.8-10.8)
[2020-05-07 04:54] LABS: Anion Gap 14 mmol/L (10-20); BUN (Urea Nitrogen) 50 mg/dL (8.4-25.7); Calc. Creatinine Clearance 26 mL/min (70-130); Calcium 7.3 mg/dL (7.8-10.44); Carbon Dioxide 18 mmol/L (23-31); Chloride 106 mmol/L (98-107); Glucose 112 mg/dL (80-115); Sodium 134 mmol/L (136-145)
[2020-05-07] MEDS: Lactated Ringer's 1,000 ML IV SCH ×2 (06:42→17:00)
[2020-05-07] MEDS: Acetaminophen 325 MG TAB PO PRN (08:48)
[2020-05-07] MEDS: Aspirin 81 mg Enteric Coated Tablet PO SCH (08:49)
--- NOTE | 2020-05-07 09:24 | PRG ---
DATE OF SERVICE: 05/07/2020 SERVICE: Renal Medicine. SUBJECTIVE: Mr. Trujillo is a 69-year-old white male followed up by the Renal Service for his acute kidney injury secondary to a presumed hemodynamically-mediated renal dysfunction. He continues to receive IV fluid, currently on LR at 100 mL/hour. Renal function is remaining stable. It has not improved nor it has not worsened. The other possibility this patient may have underlying acute tubular necrosis. He has also had a diagnosis of recent infective endocarditis, currently on IV Rocephin and vancomycin. ID is following. He voices no new complaints today. He denies any chest pain or shortness of breath. OBJECTIVE: VITAL SIGNS: Blood pressure is 135/84, heart rate 102, respiratory rate 21, temperature 99, and O2 saturation 98%. GENERAL: The patient is awake, supine, comfortable, not in overt distress. SKIN: Adequate turgor. HEENT: He has a slightly pale conjunctivae. Anicteric sclerae. NECK: No neck mass. No carotid bruits. No JVD. CHEST: No deformities. LUNGS: Clear breath sounds. HEART: Normal sinus rhythm. Grade 2/6 systolic murmur. No gallops. No rubs. ABDOMEN: Globular, soft, and nontender. EXTREMITIES: No edema. No deformities. MEDICATIONS: Of May 07, 2020, reviewed. LABORATORY DATA: Laboratories of May 07, 2020; white count 9.7, hemoglobin 8.3. Sodium 134, potassium 4, chloride 106, carbon dioxide 18, BUN 50, creatinine 3.98, glucose 112, and calcium 7.3. ASSESSMENT AND PLAN: 1. Acute kidney injury/chronic renal failure - consider hemodynamically-mediated renal dysfunction. So far he is tolerating IV fluids. Creatinine is stable at about 3.9. The other possibility due to an improved renal function, he may have a superimposed acute tubular necrosis. Even if this is an acute tubular necrosis, management is essentially supportive. Continue to optimize hemodynamics. Avoid nephrotoxic drugs - HSREYA inhibitors/diuretics. No indication for any acute dialytic intervention. 2. Infective endocarditis. The patient currently on IV antibiotics. Job ID: [id number]
--- NOTE | 2020-05-07 10:36 | PDOC.HOSPP ---
- Subjective Encounter Date: 05/07/20 Encounter Time: 09:50 Subjective: Patient seen this morning explained the plan for today both to the patient and the . The patient has dark urine in the Meier bag. - Objective Vital Signs & Weight: Vital Signs (12 hours) Temp Pulse Resp BP Pulse Ox 05/07/20 08:37 99.0 F 102 H 21 H 135/84 98 05/07/20 03:21 99.5 F 112 H 20 115/73 92 L 05/07/20 00:25 102 H Weight Admit Weight 226 lb Weight 233 lb 9 oz Most Recent Monitor Data Heart Rate from ECG 85 NIBP 108/66 NIBP BP-Mean 83 Respiration from ECG 10 SpO2 100 I&O: 05/06/20 05/07/20 05/08/20 06:59 06:59 06:59 Intake Total 3070 3180 Output Total 2100 1800 Balance 970 1380 Result Diagrams: 05/07/20 04:18 05/07/20 04:18 Hospitalist ROS - Medication Medications: Active Medications Generic Name Dose Route Start Last Admin Trade Name Freq PRN Reason Stop Dose Admin Acetaminophen 650 mg 05/06/20 02:01 05/07/20 08:48 Acetaminophen 325 Mg Tab PO 650 mg Q6H PRN Administration Fever/Mild Pain 1-3 Aspirin 81 mg 05/05/20 09:00 05/07/20 08:49 Aspirin 81 Mg Enteric Coated Tablet PO 81 mg DAILY JAIME Administration Cosyntropin 250 mcg 05/04/20 13:45 05/04/20 18:35 Cosyntropin 250 Mcg Vial SLOW IVP 250 mcg WILLCALL JAIME Administration Norepinephrine Bitartrate 8 mg 250 mls @ 0 mls/hr 05/04/20 03:45 05/04/20 03:59 / Dextrose/Water IVPB 250 mls INF PRN Administration TO MAINTAIN MAP > 65 Protocol As Directed Lactated Ringer's 1,000 mls @ 100 mls/hr 05/05/20 13:30 05/07/20 06:42 Lactated Ringer's IV 1,000 mls .Q10H JAIME Administration Ceftriaxone Sodium 2 gm/ 100 mls @ 200 mls/hr 05/05/20 18:00 05/06/20 17:03 Sodium Chloride IVPB 100 mls Q24HR JAIME Administration Melatonin 3 mg 05/06/20 02:01 05/06/20 02:25 Melatonin 3 Mg Tab PO 3 mg HS PRN Administration Insomnia Morphine Sulfate 2 mg 05/04/20 05:11 05/04/20 20:49 Morphine 2 Mg/Ml Vial SLOW IVP 2 mg Q2H PRN Administration Pain - Exam General Appearance: NAD, awake alert Eye: PERRL ENT: normocephalic atraumatic Neck: supple Respiratory: CTAB Gastrointestinal: soft, normal bowel sounds Extremities: no cyanosis, 1+ LE edema Neurological: cranial nerve grossly intact, no focal deficits Musculoskeletal: generalized weakness Hosp A/P - Plan 69-year-old male patient with a complicated past medical history including coronary artery disease status post CABG, aortic valve replacement, atrial fibrillation and chronic back pain who presents with septic shock of unclear source. Septic shock present on admission Source unknown. Patient hypotensive refractory to fluids, leukocytosis and tachypnea and fever present on admission. Echo in a.m. to rule out vegetations on valves -Continue with Levophed and fluid resuscitation Consider ID consult for review of antibiotic NSTEMI -Serial troponin -Started him on aspirin -Holding his home medications of Coreg and Lasix due to severe hypotension and on vasopressor currently Troponin significantly elevated and rising Has history of coronary disease status post CABG Given cardiac history we will start on Lovenox Cardiol.consutled JODY due to hypoperfusion Creatinine 4.39 from a baseline of 0.92 Received fluids and currently on pressors Anemia Hemoglobin is from 9.2 to 7.6. This may be dilutionalreceived about 3 L -Follow the trend Subacute stroke -Old right [employer] stroke without any residual symptoms -Bedside swallow evaluation and if okay then resume healthy heart diet Patient has A. fib-not on anticoagulation Aspirin given at outside hospital Echocardiogram ordered - Paroxysmal atrial fibrillation Not on anticoagulation Chronic back pain Pain relief as needed. Hold physical therapy evaluation and treatment as patient is on Levophed currently. Full code 10th Echo showed -Aortic valve vegetation Prosthetic aortic valve EF of 55% mildly dilated left atrium and moderate mitral regurgitation. Patient has a central line on the right upper chest. Infectious disease on board. I talked to pharmacy regarding vancomycin versus daptomycin given the renal dysfunction. -It appears that they will follow with the Dr. Hauser. -Blood and urine cultures so far no growth. 11th Potential Aortic valve endocarditis pt has no heart murmur, that i can appreciate, no classic janeway lesions, sherman spots. GUILLAUME ordered. Blood culture of 9th - no growth Keep the meier on Renal US- no hydronephrosis Karias test to narrow down the microbe/s on vanc and CTX 12th Hematuria -Will try irrigating the Meier it could be related to the trauma unsure whether he has a chronic Meier --will check with them. -If irrigation does not clear will do urology consult. Rest of the management as given in the prior note.
[2020-05-07] MEDS: Melatonin 3 MG TAB PO PRN ×2 (11:09→20:39)
--- NOTE | 2020-05-07 12:25 | PQF ---
CLINICAL DOCUMENTATION CLARIFICATION FORM: Dear Dr. Robin Cardoso Date: 05/07/20 1200, 05/08/20 Please exercise your independent, professional judgment in responding to the clarification form. Clinical indicators are provided on the bottom of this form for your review Please check appropriate box(es): [ x ] Acute blood loss anemia [ ] Post-op anemia related to acute blood loss [ ] Anemia: [ ] Aplastic [ ] Nutritional [ ] Drug induced (specify) [ ] Hemolytic [ ] Hereditary [ ] Acquired [ ] Autoimmune [ ] Non-autoimmune [ ] Enzyme disorder [ ] Chronic Anemia: [ ] Blood loss [ ] Hemolytic [ ] Simple [ ] Due to Vitamin B12 Deficiency [ ] Other [ ] Anemia of Chronic Disease (please specify) [ ] Anemia due to Neoplasm: [ ] Primary [ ] Secondary [ ] Anemia due to (please choose): [ ] Due to Chemotherapy [ ] Due to Radiotherapy [ ] Due to Immunotherapy [ ] Other diagnosis [ ] Unable to determine In addition, please specify: Present on Admission (POA): [ ] Yes [ ] No [ ] Unable to determine For continuity of documentation, please document condition throughout progress notes and discharge summary. Thank You. To be completed by CDI/Coding staff for physician review: CLINICAL INDICATORS - SIGNS / SYMPTOMS / LABS / RESULTS AND LOCATION IN EMR Increased weakness for the past couple of weeks, AMS today. Skin pale in color , Final ED dx: Septic Shock, Anemia, Nstemi Type II ( ED report) 05/04 05/04 HgB 7.6 05/05 HGB 7.9, 7.8 05/06 HGB 8.4 05/07 HGB 8.3 Hematuria- will try to irrigate the Lowe it could be related to the trauma unsure whether he has a chronic Lowe ( Gurusamy / 05/07 RISK FACTORS / RESULTS AND LOCATION IN EMR Septic shock, Anemia, Hematuria ( Gurusami/ PN) 05/07 TREATMENTS / RESULTS AND LOCATION IN EMR Transfusion of blood products x 2 units PRBC (05/04) Thank you! CDS Signature: Smitha So Rn Phone #: [phone] Date/Time: 05/07/2020 1200 This is a permanent part of the Medical Record [facility]
[2020-05-07 15:05] VITALS: BMI 30.8
--- NOTE | 2020-05-07 15:59 | PDOC.CPN ---
- Subjective Date: 05/07/20 Time: 15:57 Interval history: No new issues. Mentation unchanged. He seems depressed with his situation. - Review of Systems General: reports: fatigue. denies: fever/chills, weight/appetite/sleep changes, night sweats Respiratory: denies: cough, congestion, shortness of breath, exercise intolerance Cardiovascular: denies: chest pain, palpitation, edema, paroxysmal nocturnal d yspnea, orthopnea Gastrointestinal: denies: nausea, vomiting, diarrhea, constipation, abd pain, GI bleeding Musculoskeletal: denies: pain, tenderness, stiffness, swelling, arthritis/arthralgias Neurological: denies: numbness, syncope, seizure, weakness - Objective Allergies/Adverse Reactions: Allergies Allergy/AdvReac Type Severity Reaction Status Date / Time No Known Drug Allergies Allergy Verified 05/04/20 03:45 Visit Medications: Current Medications Acetaminophen (Acetaminophen 650 Mg Suppository) [address] Q4H PRN PRN Reason: Headache/Fever or Pain Acetaminophen (Acetaminophen 325 Mg Tab) 650 mg PO Q6H PRN PRN Reason: Fever/Mild Pain 1-3 Last Admin: 05/07/20 08:48 Dose: 650 mg Documented by: Aspirin (Aspirin 81 Mg Enteric Coated Tablet) 81 mg PO DAILY [facility] Last Admin: 05/07/20 08:49 Dose: 81 mg Documented by: Vancomycin HCl 1 gm/ Device 200 mls @ 200 mls/hr IVPB .PENDING LEVELS [facility] Lactated Ringer's (Lactated Ringer's) 1,000 mls @ 100 mls/hr IV .Q10H [facility] Last Admin: 05/07/20 06:42 Dose: 1,000 mls Documented by: Ceftriaxone Sodium 2 gm/ (Sodium Chloride) 100 mls @ 200 mls/hr IVPB Q24HR [facility] Last Admin: 05/06/20 17:03 Dose: 100 mls Documented by: Melatonin (Melatonin 3 Mg Tab) 3 mg PO HS PRN PRN Reason: Insomnia Last Admin: 05/07/20 11:09 Dose: 3 mg Documented by: Miscellaneous Medication (Pharmacy To Dose Vancomycin) 1 each IVPB PRN PRN PRN Reason: Pharmacy to dose Morphine Sulfate (Morphine 2 Mg/Ml Vial) 2 mg SLOW IVP Q2H PRN PRN Reason: Pain Last Admin: 05/04/20 20:49 Dose: 2 mg Documented by: Sodium Chloride (Flush - Normal Saline 10 Ml Syringe) 10 ml IVF PRN PRN PRN Reason: Saline Flush Vital Signs & Weight: Vital Signs Temp Pulse Pulse Pulse Resp BP BP 05/07/20 15:35 98.1 F 99 16 05/07/20 11:37 100 103 H 121/72 120/73 05/07/20 11:01 99.4 F 110 H 22 H 05/07/20 08:37 99.0 F 102 H 21 H BP Pulse Ox Pulse Ox Pulse Ox 05/07/20 15:35 115/68 95 05/07/20 11:37 94 L 94 L 05/07/20 11:01 112/71 94 L 05/07/20 08:37 135/84 98 Admit Weight 226 lb Weight 233 lb 9 oz - Physical Exam General: alert & oriented x3 HEENT: mucus membranes moist Neck: supple neck Cardiac: regular rate and rhythm, systolic murmur Lungs: normal breath sounds Neuro: grossly intact Abdomen: active bowel sounds Extremities: no edema Skin: clear Musculoskeletal: no pain - Labs Result Diagrams: 05/07/20 04:18 05/07/20 04:18 Troponin/CKMB CK-MB (CK-2) 4.6 ng/mL (0-6.6) 05/04/20 17:12 Troponin I 1.419 ng/mL (< 0.028) H* 05/04/20 17:12 - Telemetry Sinus rhythms and dysrhythmias: sinus rhythm - Assessment/Plan Assessment/Plan: 1. Aortic valve endocarditis. 2. Hx of aortic valve replacement bioprosthetis. 3. Hx of ascending aortic aneurysm s/p repair. 4. Hx of CABG, RAGSDALE to LAD, SVG to RCA 5. Post op afib after his open heart. 6. PFP s/p repair at time of open heart surgery. PLAN: - Large flail mass on aortic valve consistent with aortic valve endocarditis. Murmur unchanged today as compared to yesterday. No mental status changes. Always a concern for bacterial embolism to brain. - Still only interested in medical therapy so will cancel GUILLAUME. - Would recommend repeat echo about 6-8 weeks from now, will arrange as outpatient. - Will need PICC line - ID following for abx regimen.
[2020-05-07] MEDS ORDERED: Vancomycin HCl 750 MG in Sodium Chloride 0.9% 250 ML 250 ML IVPB SCH (17:15)
[2020-05-07] MEDS: cefTRIAXone\\ROCEPHIN 2 GM in Sodium Chloride 0.9% 100 ML IVPB SCH (17:57)
[2020-05-08] MEDS: Lactated Ringer's 1,000 ML IV SCH ×2 (02:58→15:51)
[2020-05-08 05:44] LABS: Anion Gap 12 mmol/L (10-20); BUN (Urea Nitrogen) 53 mg/dL (8.4-25.7); Calc. Creatinine Clearance 26 mL/min (70-130); Calcium 7.3 mg/dL (7.8-10.44); Carbon Dioxide 20 mmol/L (23-31); Chloride 104 mmol/L (98-107); Glucose 115 mg/dL (80-115); Sodium 132 mmol/L (136-145)
[2020-05-08 06:01] LABS: Band 10 % (5-11); Eosinophils 2 % (0-10); Hypochromia SLIGHT = 6-15 cells (100X) (0-5/hpf); Lymphocytes 7 % (21-51); MDiff Complete? YES; Mean Corpuscular HGB CONC 32.9 g/dL (32.0-36.0); Mean Corpuscular Hemoglobin 28.6 pg (27.0-31.0); Mean Corpuscular Volume 86.9 fL (78.0-98.0); Monocytes 5 % (0-10); Neutrophil 76 % (42-75); Platelet Count 63 thou/uL (130-400); Platelet Morphology Comment Appears Decreased; RBC Distribution Width 17.3 % (11.5-14.5); Red Blood Cell (RBC) Count 2.79 mill/uL (4.70-6.10); White Blood Cell (WBC) Count 10.6 thou/uL (4.8-10.8)
[2020-05-08] MEDS: Aspirin 81 mg Enteric Coated Tablet PO SCH (08:42)
[2020-05-08] MEDS ORDERED: Metoprolol Tartrate 25 MG TAB PO SCH (09:30)
--- NOTE | 2020-05-08 09:38 | PRG ---
DATE OF SERVICE: 05/08/2020 SUBJECTIVE: Mr. Trujillo is a 69-year-old white male followed up by the Renal Service for his acute kidney injury. Initially, we felt that this was a prerenal azotemia. However, renal function remains unimproved in spite of volume repletion. My suspicion is that he may have an overt acute tubular necrosis. In addition, this patient was recently diagnosed with infective endocarditis. He is currently on Rocephin and vancomycin. He voices no new complaints. He denies any chest pain or shortness of breath. OBJECTIVE: VITAL SIGNS: Blood pressure is noted at 108/71, heart rate 120, respiratory rate 16, temperature 99, O2 saturation 94%. GENERAL: Patient is awake, supine, comfortable, not in overt distress. SKIN: Adequate turgor. HEENT: He has slightly pale conjunctivae. Anicteric sclerae. No neck mass. No carotid bruits. No JVD. CHEST: No deformities. LUNGS: Clear breath sounds. No wheezing. No crackles. HEART: Tachycardic, 2/6 systolic murmur. No gallops. No rubs. ABDOMEN: Globular. Soft. Nontender. No masses. EXTREMITIES: No edema. No deformities. MEDICATIONS: Medication of May 08, 2020, was reviewed. LABORATORY DATA: Laboratories of May 08, 2020, white count 10.6, hemoglobin is 8, sodium 132, potassium 4, chloride 104, carbon dioxide 20, BUN 53, creatinine 4.08. GFR is 15 mL/minute. Calcium 7.3. ASSESSMENT AND PLAN: 1. Acute kidney injury, most likely patient has superimposed acute tubular necrosis. Renal function is relatively stable with a GFR of 15 mL/minute for the last 4 days. There is no indication for any dialytic intervention with this patient. 2. Infective endocarditis, ID and Cardiology following. Currently, on IV antibiotics. 3. Anemia, continue to observe p.r.n. blood transfusion. We will recheck CBC and base MET in the a.m. Job ID: [id number]
[2020-05-08] MEDS ORDERED: Metoprolol Tartrate 5 MG/5 ML VIAL IVP PRN (10:21)
[2020-05-08] MEDS ORDERED: Heparin 10,000 UNITS/ 10 ML VIAL SLOW IVP SCH ×2 (10:30→11:00)
[2020-05-08] MEDS ORDERED: Heparin 25,000 units/D5W 500 ML IVPB SCH ×2 (10:30→11:00)
[2020-05-08 11:19] LABS: Hemoglobin 8.4 g/dL (14.0-18.0); Platelet Count 67 thou/uL (130-400)
--- NOTE | 2020-05-08 12:08 | PDOC.HOSPP ---
- Subjective Encounter Date: 05/08/20 Encounter Time: 09:35 Subjective: Patient not very active this morning. He little lethargic. Heart rate this morning around 150 flutter and atrial tachycardia. Currently he is in sinus rhythm and rate of 90s. His right more swollen possibly dependent edema. Versus thrombophlebitis. I do not see any skin rash over the arm. - Objective Vital Signs & Weight: Vital Signs (12 hours) Temp Pulse Resp BP Pulse Ox 05/08/20 11:18 98.3 F 105 H 18 102/69 94 L 05/08/20 07:32 99.0 F 120 H 16 108/71 94 L 05/08/20 04:00 99.5 F 107 H 16 119/70 96 Weight Admit Weight 226 lb Weight 241 lb 1.6 oz Most Recent Monitor Data Heart Rate from ECG 85 NIBP 108/66 NIBP BP-Mean 83 Respiration from ECG 10 SpO2 100 I&O: 05/07/20 05/08/20 05/09/20 06:59 06:59 06:59 Intake Total 3180 3730 Output Total 1800 2300 Balance 1380 1430 Result Diagrams: 05/08/20 10:40 05/08/20 04:23 Hospitalist ROS - Medication Medications: Active Medications Generic Name Dose Route Start Last Admin Trade Name Freq PRN Reason Stop Dose Admin Acetaminophen 650 mg 05/06/20 02:01 05/07/20 08:48 Acetaminophen 325 Mg Tab PO 650 mg Q6H PRN Administration Fever/Mild Pain 1-3 Aspirin 81 mg 05/05/20 09:00 05/08/20 08:42 Aspirin 81 Mg Enteric Coated Tablet PO 81 mg DAILY JAIME Administration Lactated Ringer's 1,000 mls @ 100 mls/hr 05/05/20 13:30 05/08/20 02:58 Lactated Ringer's IV 1,000 mls .Q10H JAIME Administration Ceftriaxone Sodium 2 gm/ 100 mls @ 200 mls/hr 05/05/20 18:00 05/07/20 17:57 Sodium Chloride IVPB 100 mls Q24HR JAIME Administration Melatonin 3 mg 05/06/20 02:01 05/07/20 20:39 Melatonin 3 Mg Tab PO 3 mg HS PRN Administration Insomnia Morphine Sulfate 2 mg 05/04/20 05:11 05/04/20 20:49 Morphine 2 Mg/Ml Vial SLOW IVP 2 mg Q2H PRN Administration Pain - Exam General Appearance: NAD, awake alert Eye: PERRL ENT: normocephalic atraumatic Neck: supple Heart: RRR, normal peripheral pulses Respiratory: CTAB, normal chest expansion Gastrointestinal: soft, non-tender, non-distended, normal bowel sounds Extremities - other findings: Right more swollen than the left Neurological: cranial nerve grossly intact, no focal deficits Psychiatric: oriented to person, oriented to place Hosp A/P - Plan 69-year-old male patient with a complicated past medical history including coronary artery disease status post CABG, aortic valve replacement, atrial fibrillation and chronic back pain who presents with septic shock of unclear source. Septic shock present on admission Source unknown. Patient hypotensive refractory to fluids, leukocytosis and tachypnea and fever present on admission. Echo in a.m. to rule out vegetations on valves -Continue with Levophed and fluid resuscitation Consider ID consult for review of antibiotic NSTEMI -Serial troponin -Started him on aspirin -Holding his home medications of Coreg and Lasix due to severe hypotension and on vasopressor currently Troponin significantly elevated and rising Has history of coronary disease status post CABG Given cardiac history we will start on Lovenox Cardiol.consutled JODY due to hypoperfusion Creatinine 4.39 from a baseline of 0.92 Received fluids and currently on pressors Anemia Hemoglobin is from 9.2 to 7.6. This may be dilutionalreceived about 3 L -Follow the trend Subacute stroke -Old right FI[employer] RE[employer] stroke without any residual symptoms -Bedside swallow evaluation and if okay then resume healthy heart diet Patient has A. fib-not on anticoagulation Aspirin given at outside hospital Echocardiogram ordered - Paroxysmal atrial fibrillation Not on anticoagulation Chronic back pain Pain relief as needed. Hold physical therapy evaluation and treatment as patient is on Levophed currently. Full code 10th Echo showed -Aortic valve vegetation Prosthetic aortic valve EF of 55% mildly dilated left atrium and moderate mitral regurgitation. Patient has a central line on the right upper chest. Infectious disease on board. I talked to pharmacy regarding vancomycin versus daptomycin given the renal dysfunction. -It appears that they will follow with the Dr. Hauser. -Blood and urine cultures so far no growth. 11th Potential Aortic valve endocarditis pt has no heart murmur, that i can appreciate, no classic janeway lesions, sherman spots. GUILLAUME ordered. Blood culture of 9th - no growth Keep the meier on Renal US- no hydronephrosis Karias test to narrow down the microbe/s on vanc and CTX 12th Hematuria -Will try irrigating the Meier it could be related to the trauma unsure whether he has a chronic Meier --will check with them. -If irrigation does not clear will do urology consult. Rest of the management as given in the prior note. 13 Heart rate this morning around 150 flutter and atrial tachycardia. Currently he is in sinus rhythm and rate of 90s. His right arm more swollen possibly dependent edema. Versus thrombophlebitis. I do not see any skin rash over the arm. Patient does have aortic valve endocarditis. I am concerned about this arrhythmia. Discussed with Dr. Ndiaye. risk for afib as well. will start him on heparin protocol.
--- NOTE | 2020-05-08 12:54 | PDOC.CPN ---
- Subjective Date: 05/08/20 Time: 12:52 Interval history: he had an event earlier this morning, tachycardic, looks like atrial tach or SVT. Otherwise no new issues. No angina. No SOB. - Review of Systems General: denies: fever/chills, weight/appetite/sleep changes, night sweats, fatigue Respiratory: denies: cough, congestion, shortness of breath, exercise intolerance Cardiovascular: denies: chest pain, palpitation, edema, paroxysmal nocturnal dyspnea, orthopnea Gastrointestinal: denies: nausea, vomiting, diarrhea, constipation, abd pain, GI bleeding Musculoskeletal: denies: pain, tenderness, stiffness, swelling, arthritis/arthralgias Neurological: denies: numbness, syncope, seizure, weakness - Objective Allergies/Adverse Reactions: Allergies Allergy/AdvReac Type Severity Reaction Status Date / Time No Known Drug Allergies Allergy Verified 05/04/20 03:45 Visit Medications: Current Medications Acetaminophen (Acetaminophen 650 Mg Suppository) 650 mg NM Q4H PRN PRN Reason: Headache/Fever or Pain Acetaminophen (Acetaminophen 325 Mg Tab) 650 mg PO Q6H PRN PRN Reason: Fever/Mild Pain 1-3 Last Admin: 05/07/20 08:48 Dose: 650 mg Documented by: Aspirin (Aspirin 81 Mg Enteric Coated Tablet) 81 mg PO DAILY [facility] Last Admin: 05/08/20 08:42 Dose: 81 mg Documented by: Heparin Sodium (Porcine) (Heparin 10,000 Units/ 10 Ml Vial) 0 units SLOW IVP ASDIR [facility]; Protocol Vancomycin HCl 1 gm/ Device 200 mls @ 200 mls/hr IVPB .PENDING LEVELS [facility] Lactated Ringer's (Lactated Ringer's) 1,000 mls @ 100 mls/hr IV .Q10H [facility] Last Admin: 05/08/20 02:58 Dose: 1,000 mls Documented by: Ceftriaxone Sodium 2 gm/ (Sodium Chloride) 100 mls @ 200 mls/hr IVPB Q24HR [facility] Last Admin: 05/07/20 17:57 Dose: 100 mls Documented by: Heparin Sodium/Dextrose (Heparin 25,000 Units/D5w) 500 mls @ 0 mls/hr IVPB INF [facility]; Protocol Melatonin (Melatonin 3 Mg Tab) 3 mg PO HS PRN PRN Reason: Insomnia Last Admin: 05/07/20 20:39 Dose: 3 mg Documented by: Metoprolol Tartrate (Metoprolol Tartrate 25 Mg Tab) 25 mg PO BID JAIME Metoprolol Tartrate (Metoprolol Tartrate 5 Mg/5 Ml Vial) 5 mg IVP Q4H PRN PRN Reason: Blood Pressure Stop: 05/11/20 10:22 Miscellaneous Medication (Pharmacy To Dose Vancomycin) 1 each IVPB PRN PRN PRN Reason: Pharmacy to dose Morphine Sulfate (Morphine 2 Mg/Ml Vial) 2 mg SLOW IVP Q2H PRN PRN Reason: Pain Last Admin: 05/04/20 20:49 Dose: 2 mg Documented by: Sodium Chloride (Flush - Normal Saline 10 Ml Syringe) 10 ml IVF PRN PRN PRN Reason: Saline Flush Vital Signs & Weight: Vital Signs Temp Pulse Resp BP Pulse Ox 05/08/20 11:18 98.3 F 105 H 18 102/69 94 L 05/08/20 07:32 99.0 F 120 H 16 108/71 94 L 05/08/20 04:00 99.5 F 107 H 16 119/70 96 Admit Weight 226 lb Weight 241 lb 1.6 oz - Physical Exam General: alert & oriented x3 HEENT: mucus membranes moist Neck: supple neck Cardiac: regular rate and rhythm Lungs: clear to auscultation Neuro: grossly intact Abdomen: active bowel sounds Extremities: no edema Skin: clear Musculoskeletal: no pain - Labs Result Diagrams: 05/08/20 10:40 05/08/20 04:23 Troponin/CKMB CK-MB (CK-2) 4.6 ng/mL (0-6.6) 05/04/20 17:12 Troponin I 1.419 ng/mL (< 0.028) H* 05/04/20 17:12 - Telemetry Sinus rhythms and dysrhythmias: sinus rhythm - Assessment/Plan Assessment/Plan: 1. Aortic valve endocarditis. 2. Hx of aortic valve replacement bioprosthetis. 3. Hx of ascending aortic aneurysm s/p repair. 4. Hx of CABG, RAGSDALE to LAD, SVG to RCA 5. Post op afib after his open heart. No recurrence. 6. PFP s/p repair at time of open heart surgery. 7. Paroxysmal atach vs SVT. PLAN: - Large flail mass on aortic valve consistent with aortic valve endocarditis. Murmur unchanged today. No mental status changes. Always a concern for bacterial embolism to brain. - Still only interested on medical therapy only. - Would recommend repeat echo about 6-8 weeks from now, will arrange as outpatient. - No recurrence of afib, rhythm seen was likely atrial tach. - Will need PICC line - ID following for abx regimen.
[2020-05-08 13:47] LABS: Reference Lab Name KARIUS
[2020-05-08] MEDS: Acetaminophen 325 MG TAB PO PRN (16:06)
[2020-05-08] MEDS: cefTRIAXone\\ROCEPHIN 2 GM in Sodium Chloride 0.9% 100 ML IVPB SCH (17:29)
[2020-05-08] MEDS ORDERED: Lactated Ringer's 1,000 ML IV SCH (17:45)
[2020-05-08] MEDS ORDERED: Furosemide 20 MG/2 ML VIAL SLOW IVP SCH (18:00)
--- NOTE | 2020-05-08 18:12 | PRG ---
DATE OF SERVICE: 05/08/2020 SUBJECTIVE: Mr. Trujillo is a little bit sleepy, had some tachycardia this morning. He is a bit short of breath. No abdominal pain. He has an indwelling Lowe catheter. His I's and O's have been positive for the past four days, quite a bit positive. OBJECTIVE: VITAL SIGNS: BP is 117/77. He is tachycardic now at 113 and breathing 22 times a minute, O2 saturations are 93. GENERAL: He is awake and follows commands. NECK: Some jugular vein distention. LUNGS: Bibasilar inspiratory crackles. HEART: There is a kind of a harsh diastolic murmur in the aortic area. ABDOMEN: Soft, little bit distended. EXTREMITIES: 2+ edema in lower extremities. LABORATORY DATA: White cell count is 10.6, hemoglobin 8, platelets 63,000. Creatinine is 4.08. Carious test yielded Gemella sanguinis at 53,000 copies per mL highly significant result. ASSESSMENT AND DISCUSSION: Multiple cardiac surgeries and two valve replacements with now a mass attached to the aortic valve replacement, subconjunctival hemorrhage, and Gemella sanguinis bacteremia. 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 In the meantime, we will switch him to meropenem or continue Rocephin and Vancomycin. Due to the rarity of Gemella sp. endocarditis, the treatment options are not well supported by published evidence and mostly based on expert opinion. Job ID: [id number] [facility]
[2020-05-08] MEDS: Morphine 2 MG/ML VIAL SLOW IVP PRN (21:08)
[2020-05-08] MEDS: Melatonin 3 MG TAB PO PRN (21:08)
[2020-05-08] MEDS: Metoprolol Tartrate 25 MG TAB PO SCH (21:08)
[2020-05-09] MEDS ORDERED: Lorazepam 2 MG/ML VIAL SLOW IVP SCH ×2 (00:30→03:30)
[2020-05-09] MEDS ORDERED: Furosemide 40 MG/4 ML VIAL SLOW IVP SCH ×4 (00:30→11:45)
--- NOTE | 2020-05-09 01:34 | PDOC.EVN ---
Event Note - Event Note Event Note: Nursing called, patient tachypneic, tachycardic and more hypoxic. Assessment mod resp distress, unable to speak in complete sentences, 6L NC, increased WOB. BLE pitting edema, penis endematous. Fine crackles lower lobes. Reviewed chart, IVF d/c'd, ordered CXR, appears to be pulm congestion, BP WNL SBP 118. Give lasix 20mg IVP x 1 dose now. Discussed case with Dr. De La Fuente. He reviewed CXR. Agrees with plan of care.
[2020-05-09] MEDS ORDERED: Furosemide 20 MG/2 ML VIAL SLOW IVP SCH (02:00)
[2020-05-09] MEDS: Vancomycin 1 GM in Premix Bag 1 BAG IVPB SCH ×3 (03:38→04:40)
[2020-05-09] MEDS: Morphine 2 MG/ML VIAL SLOW IVP PRN (04:39)
[2020-05-09] MEDS ORDERED: Heparin 5,000 UNITS/ML VIAL SC SCH ×2 (06:15→21:00)
[2020-05-09 08:25] LABS: Anion Gap 18 mmol/L (10-20); BUN (Urea Nitrogen) 61 mg/dL (8.4-25.7); Calc. Creatinine Clearance 23 mL/min (70-130); Calcium 7.7 mg/dL (7.8-10.44); Carbon Dioxide 16 mmol/L (23-31); Chloride 105 mmol/L (98-107); Glucose 135 mg/dL (80-115); Potassium 4.7 mmol/L (3.5-5.1); Sodium 134 mmol/L (136-145)
--- NOTE | 2020-05-09 08:28 | RAD ---
EXAM: CHEST ONE VIEW HISTORY: Hypoxia. COMPARISON: 05/03/2020 FINDINGS: Right-sided vascular catheter remains in place. Median sternotomy wires are again seen. Cardiac silho uette is magnified by projection. There are increased interstitial and alveolar opacities seen within the lungs bilaterally greater in the right upper lung zone and at the right lung base. No pneu mothorax is visualized, and there is no definite pleural effusion. No other interval change. IMPRESSION: Interval development of increased interstitial and alveolar opacities within the lungs bilaterally gr eater in the right upper lobe and at each lung base worrisome for multifocal pneumonia. Atypical infectious process is a possibility.
[2020-05-09 09:00] LABS: Band 17 % (5-11); Crenated RBC SLIGHT = 1-5 cells (100X) (None Seen); Hemoglobin 8.3 g/dL (14.0-18.0); Lymphocytes 2 % (21-51); MDiff Complete? YES; Mean Corpuscular HGB CONC 32.8 g/dL (32.0-36.0); Mean Corpuscular Volume 88.6 fL (78.0-98.0); Mean Platelet Volume 10.2 fL (7.4-10.4); Monocytes 1 % (0-10); Neutrophil 80 % (42-75); Platelet Count 62 thou/uL (130-400); Platelet Morphology Comment Appears Decreased; Polychromasia SLIGHT = 2-3 cells (100X) (0-2/hpf); RBC Distribution Width 17.8 % (11.5-14.5); Red Blood Cell (RBC) Count 2.86 mill/uL (4.70-6.10); White Blood Cell (WBC) Count 15.3 thou/uL (4.8-10.8)
[2020-05-09] MEDS: Aspirin 81 mg Enteric Coated Tablet PO SCH (09:30)
[2020-05-09] MEDS: Metoprolol Tartrate 25 MG TAB PO SCH ×2 (09:30→21:12)
--- NOTE | 2020-05-09 09:47 | PRG ---
DATE OF SERVICE: 05/09/2020 SUBJECTIVE: Mr. Trujillo is a 69-year-old white male, being followed up by the Renal Service for his acute kidney injury secondary to a presumed acute tubular necrosis. He has received volume repletion in the past to optimize his hemodynamics. He has also a diagnosis of infective endocarditis. During the last 12 hours, patient was noted to have developed acute respiratory failure. Chest x-ray done at this time was noted to have shown interval development of increased interstitial alveolar opacities within the lungs bilaterally with greater in the right upper lobe and at each lung base worrisome for a multifocal pneumonia. Due to the respiratory distress, patient is currently on BiPAP. OBJECTIVE: VITAL SIGNS: Blood pressure is 100/77, heart rate 96, respiratory rate 20, temperature 97.2, O2 sats 96%. GENERAL EXAM: The patient is lethargic, minimally responsive to verbal stimuli, on BiPAP. HEENT: Slightly pale conjunctivae. Anicteric sclerae. NECK: No neck mass. No carotid bruits. No JVD. CHEST: No deformities. LUNGS: Decreased breath sounds. HEART: Normal sinus rhythm. No murmur. No gallops. No rubs. ABDOMEN: Globular, soft, and nontender. No masses. EXTREMITIES: Positive for edema. MEDICATIONS: May 09, 2020, were reviewed. LABORATORY DATA: May 09, 2020: White count 15.3, hemoglobin 8.3. Sodium 134, potassium 4.7, chloride 105, carbon dioxide 16, BUN 61, creatinine 4.86, GFR 12 mL/minute, calcium 7.7. ASSESSMENT AND PLAN: 1. Acute respiratory failure-infectious process versus congestive heart failure. Currently off IV fluids, on diuretics. On empiric IV antibiotics. 2. Infective endocarditis-currently on IV antibiotics. ID following. 3. Acute kidney injury-secondary to presumed acute tubular necrosis. Continue supportive care. Renal function continues to worsen. In addition, I evaluated the patient. There is no indication for any emergent hemodialysis today. I will re-evaluate this patient again. Case discussed with the . Prognosis remains guarded. Recheck CBC, basic metabolic in a.m. Job ID: [id number]
--- NOTE | 2020-05-09 10:04 | PDOC.CPN ---
- Subjective Date: 05/09/20 Time: 10:02 Interval history: He became SOB and tachypneic overnight. Increased work of breathing and higher oxygen need. He was placed on BiPAP and given 20 mg IV lasix. - Review of Systems General: reports: fatigue. denies: fever/chills, weight/appetite/sleep changes, night sweats Respiratory: reports: congestion, shortness of breath. denies: cough, exercise intolerance Cardiovascular: reports: edema. denies: chest pain, palpitation, paroxysmal nocturnal dyspnea, orthopnea Gastrointestinal: denies: nausea, vomiting, diarrhea, constipation, abd pain, GI bleeding Musculoskeletal: denies: pain, tenderness, stiffness, swelling, arthritis/arthralgias Neurological: denies: numbness, syncope, seizure, weakness - Objective Allergies/Adverse Reactions: Allergies Allergy/AdvReac Type Severity Reaction Status Date / Time No Known Drug Allergies Allergy Verified 05/04/20 03:45 Visit Medications: Current Medications Acetaminophen (Acetaminophen 650 Mg Suppository) 650 mg LA Q4H PRN PRN Reason: Headache/Fever or Pain Acetaminophen (Acetaminophen 325 Mg Tab) 650 mg PO Q6H PRN PRN Reason: Fever/Mild Pain 1-3 Last Admin: 05/08/20 16:06 Dose: 650 mg Documented by: Aspirin (Aspirin 81 Mg Enteric Coated Tablet) 81 mg PO DAILY [facility] Last Admin: 05/09/20 09:30 Dose: 81 mg Documented by: Furosemide (Furosemide 100 Mg/10 Ml Vial) 80 mg SLOW IVP ONE [facility] Heparin Sodium (Porcine) (Heparin 5,000 Units/Ml Vial) 5,000 units SC BID [facility] Vancomycin HCl 1 gm/ Device 200 mls @ 200 mls/hr IVPB .PENDING LEVELS [facility] Ceftriaxone Sodium 2 gm/ (Sodium Chloride) 100 mls @ 200 mls/hr IVPB Q24HR [facility] Last Admin: 05/08/20 17:29 Dose: 100 mls Documented by: Melatonin (Melatonin 3 Mg Tab) 3 mg PO HS PRN PRN Reason: Insomnia Last Admin: 05/08/20 21:08 Dose: 3 mg Documented by: Metoprolol Tartrate (Metoprolol Tartrate 25 Mg Tab) 25 mg PO BID [facility] Last Admin: 05/09/20 09:30 Dose: 25 mg Documented by: Metoprolol Tartrate (Metoprolol Tartrate 5 Mg/5 Ml Vial) 5 mg IVP Q4H PRN PRN Reason: Blood Pressure Stop: 05/11/20 10:22 Miscellaneous Medication (Pharmacy To Dose Vancomycin) 1 each IVPB PRN PRN PRN Reason: Pharmacy to dose Morphine Sulfate (Morphine 2 Mg/Ml Vial) 2 mg SLOW IVP Q2H PRN PRN Reason: Pain Last Admin: 05/09/20 04:39 Dose: 2 mg Documented by: Sodium Chloride (Flush - Normal Saline 10 Ml Syringe) 10 ml IVF PRN PRN PRN Reason: Saline Flush Vital Signs & Weight: Vital Signs Temp Pulse Resp BP Pulse Ox 05/09/20 08:00 97.2 F L 96 20 100/77 96 05/09/20 07:14 102 H 05/09/20 06:31 21 L 05/09/20 05:41 97.6 F 117 H 25 H 100/55 L 96 05/09/20 05:18 91 L 05/09/20 05:15 116 H 05/09/20 04:00 98.1 F 117 H 24 H 111/71 90 L 05/09/20 03:47 92 L Admit Weight 226 lb Weight 241 lb 1.6 oz - Physical Exam General: other (On BiPAP still) HEENT: normocephaly Neck: supple neck Cardiac: regular rate and rhythm Lungs: bibasilar rales Neuro: grossly intact Abdomen: active bowel sounds Extremities: 1+ LE edema Skin: clear Musculoskeletal: no pain - Labs Result Diagrams: 05/09/20 07:32 05/09/20 07:32 Troponin/CKMB CK-MB (CK-2) 4.6 ng/mL (0-6.6) 05/04/20 17:12 Troponin I 1.419 ng/mL (< 0.028) H* 05/04/20 17:12 - Telemetry Sinus rhythms and dysrhythmias: sinus tachycardia - Assessment/Plan Assessment/Plan: 1. Aortic valve endocarditis. Gemella Sanguinis bacteremia. 2. Hx of aortic valve replacement bioprosthetis. 3. Hx of ascending aortic aneurysm s/p repair. 4. Hx of CABG, RAG[place] to LAD, SVG to RCA 5. Post op afib after his open heart. No recurrence. 6. PFP s/p repair at time of open heart surgery. 7. Paroxysmal atach vs SVT. 8. Acute on chronic diastolic CHF PLAN: - Will repeat echo as this may be related to worsening valve function from endocarditis. - IV lasix. - O2 supplementation as needed. - He still wants to remain DNR/DNI and not interested in any more surgical interventions. Poor prognosis if valve replacement is not an option.
[2020-05-09] MEDS ORDERED: Furosemide 100 MG/10 ML VIAL SLOW IVP SCH (10:15)
--- NOTE | 2020-05-09 12:14 | PDOC.HOSPP ---
- Subjective Encounter Date: 05/09/20 Encounter Time: 09:45 Subjective: Patient seen he is still on BiPAP. He is oriented but not able to communicate. I talked to his who is leaning towards listening to further evaluation for his aortic valve endocarditis from a surgical point of view. - Objective Vital Signs & Weight: Vital Signs (12 hours) Temp Pulse Resp BP Pulse Ox 05/09/20 11:58 97.8 F 92 20 97/68 98 05/09/20 10:00 97.4 F L 90 22 H 97/68 98 05/09/20 08:00 97.2 F L 96 20 100/77 96 05/09/20 07:14 102 H 05/09/20 06:31 21 L 05/09/20 05:41 97.6 F 117 H 25 H 100/55 L 96 05/09/20 05:18 91 L 05/09/20 05:15 116 H 05/09/20 04:00 98.1 F 117 H 24 H 111/71 90 L 05/09/20 03:47 92 L Weight Admit Weight 226 lb Weight 241 lb 1.6 oz Most Recent Monitor Data Heart Rate from ECG 85 NIBP 108/66 NIBP BP-Mean 83 Respiration from ECG 10 SpO2 100 I&O: 05/08/20 05/09/20 05/10/20 06:59 06:59 06:59 Intake Total 3730 1100 Output Total 2300 550 Balance 1430 550 Result Diagrams: 05/09/20 07:32 05/09/20 07:32 Hospitalist ROS - Medication Medications: Active Medications Generic Name Dose Route Start Last Admin Trade Name Jered PRN Reason Stop Dose Admin Acetaminophen 650 mg 05/06/20 02:01 05/08/20 16:06 Acetaminophen 325 Mg Tab PO 650 mg Q6H PRN Administration Fever/Mild Pain 1-3 Aspirin 81 mg 05/05/20 09:00 05/09/20 09:30 Aspirin 81 Mg Enteric Coated Tablet PO 81 mg DAILY JAIME Administration Furosemide 40 mg 05/09/20 11:45 05/09/20 11:54 Furosemide 40 Mg/4 Ml Vial SLOW IVP 05/09/20 14:00 40 mg NOW JAIME Administration Ceftriaxone Sodium 2 gm/ 100 mls @ 200 mls/hr 05/05/20 18:00 05/08/20 17:29 Sodium Chloride IVPB 100 mls Q24HR JAIME Administration Melatonin 3 mg 05/06/20 02:01 05/08/20 21:08 Melatonin 3 Mg Tab PO 3 mg HS PRN Administration Insomnia Metoprolol Tartrate 25 mg 05/08/20 21:00 05/09/20 09:30 Metoprolol Tartrate 25 Mg Tab PO 25 mg BID JAIME Administration Morphine Sulfate 2 mg 05/04/20 05:11 05/09/20 04:39 Morphine 2 Mg/Ml Vial SLOW IVP 2 mg Q2H PRN Administration Pain - Exam General Appearance: NAD, awake alert Eye: PERRL Eye - other findings: On BiPAP ENT: normocephalic atraumatic Neck: supple Heart: RRR Respiratory: normal chest expansion, rhonchi, tachypneic Gastrointestinal: soft, normal bowel sounds Extremities: 1+ LE edema Neurological: cranial nerve grossly intact, no focal deficits Psychiatric: oriented to person, somnolent, lethargic Hosp A/P - Plan 69-year-old male patient with a complicated past medical history including coronary artery disease status post CABG, aortic valve replacement, atrial fibrillation and chronic back pain who presents with septic shock of unclear source. Septic shock present on admission Source unknown. Patient hypotensive refractory to fluids, leukocytosis and tachypnea and fever present on admission. Echo in a.m. to rule out vegetations on valves -Continue with Levophed and fluid resuscitation Consider ID consult for review of antibiotic NSTEMI -Serial troponin -Started him on aspirin -Holding his home medications of Coreg and Lasix due to severe hypotension and o n vasopressor currently Troponin significantly elevated and rising Has history of coronary disease status post CABG Given cardiac history we will start on Lovenox Cardiol.consutled JODY due to hypoperfusion Creatinine 4.39 from a baseline of 0.92 Received fluids and currently on pressors Anemia Hemoglobin is from 9.2 to 7.6. 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 fib-not on anticoagulation Aspirin given at outside hospital Echocardiogram ordered - Paroxysmal atrial fibrillation Not on anticoagulation Chronic back pain Pain relief as needed. Hold physical therapy evaluation and treatment as patient is on Levophed currently. Full code 10th Echo showed -Aortic valve vegetation Prosthetic aortic valve EF of 55% mildly dilated left atrium and moderate mitral regurgitation. Patient has a central line on the right upper chest. Infectious disease on board. I talked to pharmacy regarding vancomycin versus daptomycin given the renal dysfunction. -It appears that they will follow with the Dr. Hauser. -Blood and urine cultures so far no growth. 11th Potential Aortic valve endocarditis pt has no heart murmur, that i can appreciate, no classic janeway lesions, sherman spots. GUILLAUME ordered. Blood culture of 9th - no growth Keep the meier on Renal US- no hydronephrosis Karias test to narrow down the microbe/s on vanc and CTX 12th Hematuria -Will try irrigating the Meier it could be related to the trauma unsure whether he has a chronic Meier --will check with them. -If irrigation does not clear will do urology consult. Rest of the management as given in the prior note. 13th Heart rate this morning around 150 flutter and atrial tachycardia. Currently he is in sinus rhythm and rate of 90s. His right arm more swollen possibly dependent edema. Versus thrombophlebitis. I do not see any skin rash over the arm. Patient does have aortic valve endocarditis. I am concerned about this arrhythm ia. Discussed with Dr. Ndiaye. risk for afib as well. will start him on heparin protocol. 14th Acute respiratory failure requiring BiPAP Pulmonary congestion possibly contributed by CHF exacerbation and aortic valve endocarditis talked to his who is leaning towards listening to further evaluation for his aortic valve endocarditis from a surgical point of view. Discussed with Dr. Browning.
[2020-05-09] MEDS: cefTRIAXone\\ROCEPHIN 2 GM in Sodium Chloride 0.9% 100 ML IVPB SCH (17:40)
--- NOTE | 2020-05-09 18:08 | PRG ---
DATE OF SERVICE: 05/09/2020 Echocardiogram done today for a change in clinical status was done and it shows that his aortic bioprosthetic valve is significantly worse with loss of anatomy and a large area of hypoechoic regions around the valve suggestive of perivalvular abscess. In this situation, the only life-saving procedure would be surgery to clean out the valve and possibly replace the valve and the root again. This cannot be done in this facility, hence, he would need to be transferred out. I spoke with Mr. Trujillo and his about the situation. Antibiotics would not suffice and would be unlikely to give us a good outcome, and in this situation, the only choices that I would think we have are either continue medications only and eventually he would have to be probably palliative care hospice care as this is not a survival event with medicines or going ahead and getting aggressive and transferring him to a facility where he can have open heart again for a clean-out and the aortic root replacement likely as well as a new valve. After discussion with him and his , they have decided to go ahead with the surgery. They would like to go back to the same facility where they had their original surgery, which is [facility]. We will place transfer order and hopefully will get a bed soon to try to get him over there as soon as possible. We have already spoken with Cardiothoracic Surgery here in our facility and he has already been turned down as we do not do this type of surgery here, so we will have to go to a higher level of care. Otherwise, continue other medications for now. Job ID: [id number]
--- NOTE | 2020-05-09 18:54 | CON ---
DATE OF CONSULTATION: HISTORY OF PRESENT ILLNESS: This is a 69-year-old gentleman who is now 2 years status post surgery at [facility] in [place], where he underwent, what sounds like, possibly an aortic root replacement with repair of an ascending aneurysm, replacement of his aortic valve, and according to the , he had two valves and a bypass but this is not clear to me. In any event, he had this almost two years ago and according to the patient and , he has never fully recovered. He has been feeling poorly for at least a month and was admitted with probable infected aortic valve endocarditis with a large vegetation on his aortic valve. Since admission here, he has had worsening congestive heart failure and worsening renal function. He was in atrial fibrillation as well. Cultures so far have been negative. He is currently maintained on vancomycin and ceftriaxone. He had worsening dyspnea, prompting placement on BiPAP earlier this morning and is now resting more comfortably, currently with his BiPAP off. The patient had previously stated he would not undergo another surgical procedure and this is still how he is feeling. PAST MEDICAL HISTORY: Otherwise includes remote nephrolithiasis and previous atrial fibrillation. PAST SURGICAL HISTORY: As noted above. SOCIAL HISTORY: He is and lives in the [place] area with his [place] [address] acres, which he has really not been able to manage since his surgery. PHYSICAL EXAMINATION: GENERAL: On examination, he is awake, alert gentleman. Height 6 feet 1 inch, weight 240. Breathing comfortably at the present time. LUNGS: Have bilateral wheezes, expiratory in nature. CARDIAC EXAM: He has a resting tachycardia that appears regular on examination, associated with both systolic and diastolic murmur with the systolic being more prominent. ABDOMEN: Obese, nontender, and I do not appreciate any organomegaly. LOWER EXTREMITIES: Both have about 2+ edema, and I am unable to palpate pedal pulses. ASSESSMENT AND PLAN: At this time, the patient's cardiac echo shows probable large vegetation on the bioprosthetic aortic valve associated with a perivalvular abscess. With that in the face of a Dacron graft, possible root replacement, I think, makes the reintervention complex to say the least, and also with a low survivability given his current creatinine of 5. Although the patient currently does not wish to have any surgical intervention, I suspect that as his condition deteriorates here, his will probably wish to have everything done that can be done. In that case, this will not be the institution for him to be residing in given the fact that he will require a much larger operation than we can offer him here. Job ID: [id number]
[2020-05-10 00:39] VITALS: BP 100/72; TEMP 98.2
[2020-05-10] MEDS ORDERED: Furosemide 20 MG TAB PO SCH (09:00)
--- NOTE | 2020-05-10 11:22 | PDOC.DS.DS ---
Provider - Provider Date of Admission: 05/04/20 02:36 Admitting Provider: Jesu Givens MD Primary Care Physician: Delma Nam MD Course - Hospital Course Hospital Course: 69-year-old male patient with a complicated past medical history including coronary artery disease status post CABG, aortic valve replacement, atrial fibrillation and chronic back pain who presents with septic shock of unclear source. Septic shock present on admission - s/p Levophed and fluid resuscitation NSTEMI Has history of coronary disease status post CABG JODY due to hypoperfusion Creatinine 4.39 from a baseline of 0.92 Anemia Hemoglobin is from 9.2 to 7.6. This may be dilutionalreceived about 3 L -Follow the trend Subacute stroke -Old right [employer] stroke without any residual symptoms Repeat echo showed worsening of his aortic wall as well as the root hypoechoic density suggesting an abscess. Patient is hemodynamically though stable he needs a higher level of care including new aortic valve replacement. Appreciate Dr. Browning's input as well. Patient had a prior cardiac surgery in [facility]. He is transferred for higher level care on 14th evening. Resuscitation Status: 05/09/20 05:28 Resuscitation Status Routine Resuscitation Status: DNAR: NO Resuscitation Discussed with: patient, , nursing - Labs Lab Results: 05/09/20 07:32 05/09/20 07:32 Abnormal Lab Results - Last 48 hrs 05/08/20 10:40: APTT 38.2 H 05/09/20 07:32: Sodium 134 L, Carbon Dioxide 16 L, BUN 61 H, Creatinine 4.86 H, Calcium 7.7 L 05/09/20 07:32: WBC 15.3 H, RBC 2.86 L, Hgb 8.3 L, Hct 25.3 L, RDW 17.8 H, Plt Count 62 L, Neutrophils % (Manual) 80 H, Band Neuts % (Manual) 17 H, Lymphocytes % (Manual) 2 L, Plt Morphology Comment Appears Decreased L Microbiology - Entire Visit 05/04/20 13:19 Central Line - Right Subclavian Vein Blood Culture - Final NO GROWTH IN 5 DAYS 05/04/20 12:54 Central Line - Right Subclavian Vein Blood Culture - Final NO GROWTH IN 5 DAYS 05/04/20 12:45 Urine meier catheter Urine Culture - Final NO GROWTH AT 48 HOURS 05/04/20 02:48 Stool - Pending Stool Occult Blood (NELDA) - Final - Physical Exam Vitals: Vital Signs (12 hours) Temp Pulse Resp BP Pulse Ox 05/10/20 02:21 94 05/10/20 00:00 98.2 F 94 16 100/72 94 L Weight Admit Weight 226 lb Weight 241 lb 1.6 oz Most Recent Monitor Data Heart Rate from ECG 85 NIBP 108/66 NIBP BP-Mean 83 Respiration from ECG 10 SpO2 100 Physical Exam: The patient was seen and examined on the day of discharge. Plan - Discharge Medications Home Medications: Medication Instructions Recorded Confirmed Type Carvedilol [Coreg] 6.25 mg PO BID 05/04/20 05/04/20 History Ferrous Sulfate 650 mg PO BID 05/04/20 05/04/20 History Fluticasone Propionate [Flonase 1 spray EA NARE DAILY 05/04/20 05/04/20 History Allergy Relief] Furosemide 20 mg PO DAILY 05/04/20 05/04/20 History Potassium Chloride [K-Dur] 20 meq PO DAILY 05/04/20 05/04/20 History Tamsulosin HCl [Flomax] 0.4 mg PO DAILY 05/04/20 05/04/20 History tiZANidine HCl [Tizanidine HCl] 4 mg PO TID 05/04/20 05/04/20 History Allergies: No Known Drug Allergies Allergy (Verified 05/04/20 03:45) PER ER NOTES - Follow up Plan Referrals: Delma Nam MD [Primary Care Provider] - Disposition: OTHER HOSPITAL INPT Quality - Care Measures CORE MEASURES:: N/A
--- NOTE | 2020-05-11 12:18 | EKG ---
Test Reason : Blood Pressure : / mmHG Vent. Rate : 090 BPM Atrial Rate : 090 BPM P-R Int : 248 ms QRS Dur : 100 ms QT Int : 384 ms P-R-T Axes : 060 054 091 degrees QTc Int : 469 ms Sinus rhythm with 1st degree A-V block Cannot rule out Anterior infarct , age undetermined Abnormal ECG Confirmed by IBAN SCHAEFER DO ([id number]), non linear editor CATARINA LIRIANO ([id number]) on 05/11/2020 12:18:00 PM Referred By: Confirmed By:IBAN SCHAEFER DO
--- NOTE | 2020-05-13 06:22 | PQF ---
CLINICAL DOCUMENTATION CLARIFICATION FORM: Dear : Maurice Cardoso Date / Time: 05/13/20 06:22 Please exercise your independent, professional judgment in responding to the clarification form. Clinical indicators are provided on the bottom of this form for your review Based on your clinical judgment, can you please specify etiology of patients sepsis? Please check appropriate box(es): [ x ] Sepsis due to Infective Endocarditis unspecified [ ] Sepsis due to Infective Endocarditis as a complication of infected Bioprosthetic aortic valve [ ] Sepsis due to unknown etiology [ ] Other diagnosis, please specify [ ] Unable to determine Physician Signature: Date/Time: For continuity of documentation, please document condition throughout progress notes and discharge summary. Thank You. 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 Gemella sanguinis bacteremia PN 05/09 [x] Temp=99.7 Pulse=86 Respi=20 BP=98/57 Vital Signs 05/04 [x] WBC: 05/04=25.0 05/09=15.3 Laboratory 05/04 [x] Blood culture: no growth Laboratory 05/04 Present Risk Factors Results and Location in Medical Record [x] 66 years old male DS 05/10 [x] s/p aortic valve replacement DS 05/10 [x] Former Smoker HP 05/04 Present Treatments Results and Location in Medical Record [x] IVF JUN 24 [x] Levophed 8mg IV JUN 24 [x] Daptomycin 500mg IV JUN 24 [x] Vancomycin 2gm IV JUN 24 [x] Zosyn 4.5gm IV JUN 24 [facility] Teacher Signature: Marguerite Peterson Phone #: [phone] Date/Time: 05/13/20 This is a permanent part of the Medical Record [facility]
== END 2020-05-10 03:20 | disposition short-term general hospital (02) | DRG 871 ==
LOC: ERS 00:53 → IMCU/EMU 02:36 → 2NO 23:51 → 2SE 05-09 05:55
PROVIDERS: ADMIT Student in an Organized Health Care Education/Training Program; ATTEND Internal Medicine
PROC: 30233N1 Transfusion of Nonautologous Red Blood Cells into Peripheral Vein, Percutaneous Approach (ICD-10-PCS; 2020-05-04)
PROC: 3E033XZ Introduction of Vasopressor into Peripheral Vein, Percutaneous Approach (ICD-10-PCS; 2020-05-04)
PROC: 5A09357 Assistance with Respiratory Ventilation, Less than 24 Consecutive Hours, Continuous Positive Airway Pressure (ICD-10-PCS; principal; 2020-05-09)
DX: A41.9 Sepsis, unspecified organism (principal); R65.21 Severe sepsis with septic shock; I21.4 Non-ST elevation (NSTEMI) myocardial infarction; I63.9 Cerebral infarction, unspecified; I33.0 Acute and subacute infective endocarditis; J96.01 Acute respiratory failure with hypoxia; I50.33 Acute on chronic diastolic (congestive) heart failure; N17.9 Acute kidney failure, unspecified; D62 Acute posthemorrhagic anemia; I13.0 Hypertensive heart and chronic kidney disease with heart failure and stage 1 through stage 4 chronic kidney disease, or unspecified chronic kidney disease; Z66 Do not resuscitate; I48.91 Unspecified atrial fibrillation; I48.0 Paroxysmal atrial fibrillation; I25.10 Atherosclerotic heart disease of native coronary artery without angina pectoris; G89.29 Other chronic pain; E86.0 Dehydration; N18.9 Chronic kidney disease, unspecified; R31.9 Hematuria, unspecified; Z87.442 Personal history of urinary calculi; Z87.891 Personal history of nicotine dependence; Z97.4 Presence of external hearing-aid; Z86.73 Personal history of transient ischemic attack (TIA), and cerebral infarction without residual deficits; Z95.2 Presence of prosthetic heart valve; Z95.1 Presence of aortocoronary bypass graft; Z91.040 Latex allergy status; Z79.899 Other long term (current) drug therapy
CPT/HCPCS: 36415; 36430; 36556; 51702; 70450; 71045; 76770; 80048; 80061; 80202; 80400; 81001; 82274; 82553; 82570; 83036; 83735; 84300; 84443; 84484; 85025; 85027; 85610; 85730; 86850; 86900; 86901; 87040; 87086; 93005; 93306; 94640; 94660; 96365; 96366; J0696; J0834; J1644; J1650; J1940; J2060; J2270; J2543; J3370; J3490; J7030; J7050; J7070; J7620; P9016; P9047

== ENCOUNTER 2020-07-25 15:41 | Outpatient (CLI) | payer MEDICARE | END 2020-07-25 15:42 | disposition home or self-care (01) | LOC: BICULT 15:41 | PROVIDERS: ATTEND Internal Medicine Nephrology | DX: N18.30 Chronic kidney disease, stage 3 unspecified (principal) | CPT/HCPCS: 76770 ==

== ENCOUNTER 2021-05-22 14:22 | Outpatient (CLI) | payer MEDICARE | END 2021-05-22 14:23 | disposition home or self-care (01) | LOC: BICRAD 14:22 | PROVIDERS: ATTEND Internal Medicine Cardiovascular Disease | DX: R05.9 Cough, unspecified (principal); Z98.890 Other specified postprocedural states | CPT/HCPCS: 71046 ==

== ENCOUNTER → 2023-04-08 | Day surgery (SDC) | payer MEDICARE ==
[2023-04-07 13:38] VITALS: BMI 31.6
[~2023-04-08] MED LIST: Lidocaine 1% PF 5 ML VIAL ONE; PROPOFOL 40 ML ONE
== END ==
LOC: SDC 08:45
PROVIDERS: ATTEND Internal Medicine Cardiovascular Disease
PROC: B246ZZ4 Ultrasonography of Right and Left Heart, Transesophageal (ICD-10-PCS; principal; 2023-04-08)
PROC: 5A2204Z Restoration of Cardiac Rhythm, Single (ICD-10-PCS; 2023-04-08)
DX: I48.91 Unspecified atrial fibrillation (principal); I42.0 Dilated cardiomyopathy; I10 Essential (primary) hypertension; I33.0 Acute and subacute infective endocarditis; Z98.890 Other specified postprocedural states; Z79.01 Long term (current) use of anticoagulants; Z87.891 Personal history of nicotine dependence; Z79.82 Long term (current) use of aspirin; Z79.899 Other long term (current) drug therapy
CPT/HCPCS: 92960; 93005; 93010; 93312; J2704